=== PATIENT | female | born 1960 | race Caucasian/White ===

== ENCOUNTER 2020-11-30 08:34 | Outpatient (CLI) | payer OTHER, SELFPAY ==
--- NOTE | ~2020-11-30 | MM_ITS ---
EXAMINATION: MM screening arden BI w bety HISTORY: Screening mammogram, family history of breast cancer in her mother. TECHNIQUE: Craniocaudal and mediolateral oblique 3-D tomosynthesis images were obtained and synthetic 2-D images were generated. CAD analysis was submitted and interpreted. COMPARISON: 06/01/2019, 05/17/2018, 09/18/2015 BREAST PARENCHYMAL COMPOSITION: There are scattered areas of fibroglandular density. FINDINGS: There is no evidence of suspicious mass, calcification, or architectural distortion to sugg est malignancy in either breast. There has been no suspicious interval change. IMPRESSION: 1. No mammographic evidence of malignancy. 2. Recommend routine screening mammography in one year. BI-RADS Category 1: Negative Reviewed, dictated and finalized at location A.
--- NOTE | ~2020-11-30 | DEXA_ITS ---
Bone Density Report Name: Gregor Ariza Age: 60 Sex: Female Ethnicity: White Date of : 1960 Indication: osteopenia; height loss; hysterectomy; postmenopausal Referring Provider: Stephanie Wallace Study: Bone densitometry was performed. Exam Date: November 30, 2020 Accession number: [id number] Bone Density: Region BMD T-score Z-score Classification AP Spine (L1-L4) 0.961 -0.8 0.6 Normal Femoral Neck (Left) 0.672 -1.6 -0.3 Osteopenia Total Hip (Left) 0.777 -1.4 -0.4 Osteopenia Total Hip Bilateral Avg 0.820 -1.0 -0.1 Osteopenia Femoral Neck (Right) 0.753 -0.9 0.4 Normal Total Hip (Right) 0.862 -0.7 0.3 Normal World Health Organization criteria for BMD impression classify patients as: Normal (T-score at or above -1.0), Osteopenia (T-score between -1.0 and -2.5), or Osteoporosis (T-score at or below -2.5). 10-year Fracture Risk(1): Major Osteoporotic Fracture 7.4% Hip Fracture 1.0% Reported Risk Factors: [place] (), Neck BMD=0.672, BMI=38.1, smoking (1) FRAX(R) Version 3.08. Fracture probability calculated for an untreated patient. Fracture probability may be lower if the patient has received treatment. Previous Exams: Region Exam Age BMD T-score BMD Change BMD Change Date g/cm2 vs Baseline vs Previous AP Spine(L1-L4) 11/30/2020 60 0.961 -0.8 -0.031(-3.1%)# 0.009(0.9%) 05/17/2018 57 0.952 -0.9 -0.040(-4.0%)# -0.054(-5.4%)* 08/27/2014 53 1.007 -0.4 0.014(1.4%)# 0.014(1.4%)# 08/18/2012 51 0.992 -0.5 Total Hip(Left) 11/30/2020 60 0.777 -1.4 -0.163(-17.4%) -0.032(-3.9%)* 05/17/2018 57 0.808 -1.1 -0.131(-14.0%) -0.052(-6.0%)* 08/27/2014 53 0.860 -0.7 -0.079(-8.5%)# -0.079(-8.5%)# 08/18/2012 51 0.940 0.0 Total Hip(Right) 11/30/2020 60 0.862 -0.7 -0.036(-4.0%)# 0.001(0.1%) 05/17/2018 57 0.861 -0.7 -0.037(-4.1%)# -0.064(-6.9%)* 08/27/2014 53 0.925 -0.1 0.027(3.0%)# 0.027(3.0%)# 08/18/2012 51 0.897 -0.4 *Denotes significance at 95% confidence level, LSC for AP Spine = 0.022 g/cm2, LSC for Total Hip = 0.027 g/cm2 Clinical Information Provided by Patient: Smokes Has used the following medications: Vitamin D, Calcium Has the following medical conditions: Hysterectomy Patient maximum height was 62 Menopause Age: 50 Drinks caffeinated beverages Onset of menses at age 14 Number of children 5 Impression: The patient has low bone mass, based on the Left F
== END 2020-11-30 08:35 | disposition home or self-care (01) ==
LOC: ANHIMG 08:36
PROVIDERS: PCP Family Medicine; Visit Provider Student in an Organized Health Care Education/Training Program
DX: Z12.31 Encounter for screening mammogram for malignant neoplasm of breast (principal); Z78.0 Asymptomatic menopausal state; M85.852 Other specified disorders of bone density and structure, left thigh; M85.851 Other specified disorders of bone density and structure, right thigh
CPT/HCPCS: 77063; 77067; 77080

== ENCOUNTER 2022-01-22 10:42 | Outpatient (CLI) | payer OTHER, SELFPAY ==
--- NOTE | ~2022-01-22 | MM_ITS ---
EXAMINATION: MM screening arden BI w bety HISTORY: Screening TECHNIQUE: Craniocaudal and mediolateral oblique 3-D tomosynthesis images were obtained and synthetic 2-D images were generated. CAD analysis was submitted and interpreted. COMPARISON: Comparison to multiple prior studies sequentially, with oldest reviewed study dated 09/07. BREAST PARENCHYMAL COMPOSITION: There are scattered areas of fibroglandular density. FINDINGS: There is no evidence of suspicious mass, calcification, or architectural distortion to sugg est malignancy in either breast. There has been no suspicious interval change. IMPRESSION: 1. No mammographic evidence of malignancy. 2. Recommend routine screening mammography in one year. BI-RADS Category 1: Negative Reviewed, dictated and finalized at location A.
== END 2022-01-22 10:43 | disposition home or self-care (01) ==
LOC: ANHIMG 10:43
PROVIDERS: PCP Family Medicine; Visit Provider Student in an Organized Health Care Education/Training Program
DX: Z12.31 Encounter for screening mammogram for malignant neoplasm of breast (principal)
CPT/HCPCS: 77063; 77067

== ENCOUNTER 2022-05-11 11:35 | Outpatient (CLI) | payer OTHER, SELFPAY ==
[2022-05-11 18:48] LABS: Basophils Percent Auto 0.5 % (0.2-1.2); Eosinophils Absolute Auto 0.1 K/mm3 (0-0.3); Eosinophils Percent Auto 0.8 % (0-4.4); Hematocrit 45.7 % (37.0-47.0); Hemoglobin 15.3 g/dL (12.0-15.0); Immature Granulocyte Absolute 0.02 K/mm3 (0.00-0.031); Immature Granulocyte Percent A 0.2 % (0-0.5); Lymphocytes Absolute Auto 2.37 K/mm3 (0.9-3.2); Lymphocytes Percent Auto 27.2 % (18.3-44.2); Mean Corpuscular HGB Conc 33.5 g/dl (32-36); Mean Corpuscular Hemoglobin 32.6 pg (26-34); Mean Corpuscular Volume 97.4 fl (80-100); Mean Platelet Volume 12.2 fl (7.4-10.4); Monocytes Absolute Auto 0.9 K/mm3 (0.1-0.6); Neutrophils Absolute Auto 5.3 K/mm3 (1.3-6.7); Neutrophils Percent Auto 61.3 % (45.5-73.1); Platelet Count Result 193 k/mm3 (150-375); Red Blood Count 4.69 M/mm3 (4.2-5.4); Red Cell Distribution Width 13.5 % (11.5-14.5); White Blood Count 8.7 K/mm3 (4.5-10.0)
[2022-05-11 18:49] LABS: Alanine Aminotransferase 31 U/L (6-35); Albumin Level 4.5 g/dL (3.5-5.1); Alkaline Phosphatase 108 U/L (38-126); Anion Gap 10 mmol/L (8-16); Aspartate Amino Transferase 42 U/L (14-36); Bilirubin,Total 0.6 mg/dL (0.2-1.3); Blood Urea Nitrogen 13 mg/dL (7-17); Calcium 9.5 mg/dL (8.4-10.2); Carbon Dioxide 28 mmol/L (22-30); Chloride 104 mmol/L (98-107); Cholesterol 204 mg/dL (0-200); Estimated Glomerular Filt Rate > 60; Glucose 100 mg/dL (65-110); HDL Direct 64 mg/dL; Sodium 142 mmol/L (137-145); Triglycerides 109 mg/dL (<150)
[2022-05-11 19:18] LABS: Vitamin D 25 Hydroxy 43.2 ng/mL
[2022-05-11 19:38] LABS: LDL Cholesterol Direct 99 mg/dL
== END 2022-05-11 11:36 | disposition home or self-care (01) ==
LOC: ANHGOSHLAB 11:37
PROVIDERS: PCP Family Medicine; Visit Provider Nurse Practitioner Family
DX: E03.9 Hypothyroidism, unspecified (principal); E78.5 Hyperlipidemia, unspecified; E55.9 Vitamin D deficiency, unspecified
CPT/HCPCS: 36415; 80053; 80061; 82306; 84443; 85025

== ENCOUNTER 2023-04-09 07:33 | Outpatient (CLI) | payer OTHER, SELFPAY ==
--- NOTE | ~2023-04-09 | MM_ITS ---
EXAMINATION: MM screening arden BI w bety HISTORY: Screening TECHNIQUE: Craniocaudal and mediolateral oblique 3-D tomosynthesis images were obtained and synthetic 2-D images were generated. CAD analysis was submitted and interpreted. COMPARISON: Comparison to multiple prior studies sequentially, with oldest reviewed study dated 09/07. BREAST PARENCHYMAL COMPOSITION: There are scattered areas of fibroglandular density. FINDINGS: There is no evidence of suspicious mass, calcification, or architectural distortion to sugg est malignancy in either breast. There has been no suspicious interval change. IMPRESSION: 1. No mammographic evidence of malignancy. 2. Recommend routine screening mammography in one year. BI-RADS Category 1: Negative Reviewed, dictated and finalized at location A.
== END 2023-04-09 07:34 | disposition home or self-care (01) ==
LOC: ANHIMG 07:35
PROVIDERS: PCP Family Medicine; Visit Provider Family Medicine
DX: Z12.31 Encounter for screening mammogram for malignant neoplasm of breast (principal)
CPT/HCPCS: 77063; 77067

== ENCOUNTER 2023-04-22 01:15 | Day surgery (SDC) | payer OTHER, SELFPAY ==
[2023-04-13 14:00] VITALS: BMI 37.2
--- NOTE | 2023-04-21 12:49 | PM.HPGS ---
History of Present Illness History of Present Illness Consent: Risks, benefits, and alternatives have been discussed and questions answered. Patient agrees to proceed with procedure. Chief complaint: Personal hx of colon polyps Narrative: Gregor Ariza is a 62 year old female Referred for colon cancer screening. She has history of polyps. She had polyps removed in 2010 and 2015. Review of Systems Review of Systems: All systems reviewed & are unremarkable except as noted in HPI and below PMFSH Past Medical History Medical History Arthritis Colovesical fistula Takedown 2018 History of vaginal delivery x1 Hx of colonic polyp (~02/2016) Hyperlipidemia Hypothyroid Low TSH, normal T4. Monitoring. Kidney stone 1986, 2002 Osteopenia Tobacco use Vitamin D deficiency Surgical History Surgical History H/O section x4 H/O dilation and curettage 1993, 1979 H/O partial resection of colon (~2017) 18 Sigmoid Colectomy H/O sinus surgery (~1989) History of appendectomy (~1968) History of lumpectomy of left breast (~09/1997) History of partial hysterectomy (~04/2007) with Bladder repair Hx of knee surgery (~1974) repair of chronic sublettal patella Hx of tubal ligation (~1991) Family History Family History Mother Breast cancer Other Breast cancer Mother Family history of blood dyscrasia, Onset Age: 66 History of thyroid surgery Mitral valve replaced Father H/O coronary artery bypass surgery Social History Social History Smoking packs per day: 0.5 Smoking cigarettes per day: 10.0 Years smoked: 40 Smoking pack-years: 20.00 Smoking status: Current every day smoker Tobacco type: cigarettes Second hand tobacco smoke exposure: No Alcohol intake: current Alcohol use details: occasionnally Substance use: never Substance use type: does not use Lack of Transportation: No Lack of Food: Never True Current Housing: I Have Housing Concerned About Future Housing: No Difficulty Paying Gas/Electric Bills: No Difficulty Paying for Meds: No Currently Unemployed: No Education: Associate Degree Difficulty w/ Childcare or Family Care: No Living arrangements: with family Additional living arrangements comments: 2 Sons Occupation/Education: occupation 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 Spiritual care concerns: No Agree to blood products: Yes Meds Home Medications and Allergies Home Medications Medication Instructions Recorded Confirmed Type multivitamin 1 tablet PO DAILY 05/25/19 04/22/23 History cholecalciferol (vitamin D3) 25 25 mcg PO DAILY 05/09/21 04/22/23 History mcg (1,000 unit) capsule potassium gluconate 550 mg (90 mg) 550 mg PO DAILY 05/09/21 04/22/23 History tablet vitamin E (dl, acetate) 180 mg 180 mg PO DAILY 05/09/21 04/22/23 History (400 unit) capsule Glucosamine Chondroitin 1,125 mg PO DAILY 04/13/23 04/22/23 History calcium carbonate 600 mg-vitamin 1.5 tablet PO DAILY 04/13/23 04/22/23 History D3 10 mcg (400 unit) tablet (Calcium with Vitamin D) Allergies Allergy/AdvReac Type Severity Reaction Status Date / Time erythromycin base Allergy Severe NAUSEA AND Verified 04/22/23 09:28 DIARRHEA morphine Allergy Severe ITCHING Verified 04/22/23 09:28 azithromycin Allergy Intermediate Nausea and Verified 04/22/23 09:28 Vomiting aspirin AdvReac Intermediate bloody nose Verified 04/22/23 09:28 salicylic acid AdvReac Intermediate Nose Bleed Verified 04/22/23 09:28 Exam Resp: Auscultation: clear to auscultation bilaterally Cardio: Rate: regular rate Rhythm: regular rhythm GI: GI Palp: Yes Soft to palpation and No Tenderness to palpation present (GI)
[2023-04-22 09:30] VITALS: BP 120/72; PULSE 86; RESP 16; TEMP 36.3; O2SAT 99
[2023-04-22] MEDS: LACTATED RINGERS 1,000 ML 150 ML IV CONT (09:38)
[2023-04-22 10:48] VITALS: BP 96/56; PULSE 65; RESP 18; O2SAT 95
[2023-04-22 10:58] VITALS: BP 104/66; PULSE 68; RESP 20; O2SAT 95
[2023-04-22 11:08] VITALS: BP 108/69; PULSE 65; RESP 18; O2SAT 97
== END 2023-04-22 11:11 | disposition home or self-care (01) ==
PROVIDERS: PCP Family Medicine; Visit Provider Internal Medicine Gastroenterology
PROC: 0DJD8ZZ Inspection of Lower Intestinal Tract, Via Natural or Artificial Opening Endoscopic (ICD-10-PCS; CPT 45378; principal; 2023-04-22 10:30)
DX: Z12.11 Encounter for screening for malignant neoplasm of colon (principal); K62.1 Rectal polyp; K64.8 Other hemorrhoids; E78.5 Hyperlipidemia, unspecified; E03.9 Hypothyroidism, unspecified; M85.80 Other specified disorders of bone density and structure, unspecified site; E55.9 Vitamin D deficiency, unspecified; F17.210 Nicotine dependence, cigarettes, uncomplicated; Z90.49 Acquired absence of other specified parts of digestive tract; Z98.0 Intestinal bypass and anastomosis status; Z80.3 Family history of malignant neoplasm of breast; Z82.49 Family history of ischemic heart disease and other diseases of the circulatory system
CPT/HCPCS: 45380; 88305; J2704; J7120

== ENCOUNTER 2023-09-13 09:42 | Outpatient (CLI) | payer OTHER, SELFPAY ==
--- NOTE | ~2023-09-13 | XR_ITS ---
EXAMINATION: [id number] INDICATION: Left chest pain TECHNIQUE: A frontal view of the chest and 3 views of the left ribs were obtained. COMPARISON: None. FINDINGS: There are healing posterior fractures of the left fourth through seventh ribs. The lungs ar e free of acute opacities. No pleural effusion or pneumothorax. The cardiomediastinal silhouette is n ormal. IMPRESSION: 1. Healing left rib fractures. Reviewed, dictated and finalized at location F.
== END 2023-09-13 09:43 ==
DX: S22.42XG Multiple fractures of ribs, left side, subsequent encounter for fracture with delayed healing (principal); X58.XXXD Exposure to other specified factors, subsequent encounter
CPT/HCPCS: 71101

== ENCOUNTER 2024-05-12 07:32 | Outpatient (CLI) | payer OTHER, SELFPAY ==
--- NOTE | ~2024-05-12 | DEXA_ITS ---
Bone Density Report Name: Gregor CASPER Age: 63 Sex: Female Ethnicity: White Date of : 1960 Indication: postmenopausal; screening for osteoporosis; height loss; hysterectomy; Referring Provider: CLAY YOON Study: Bone densitometry was performed. Exam Date: May 12, 2024 Accession number: [id number] Bone Density: Region BMD T-score Z-score Classification AP Spine(L1-L4) 0.909 -1.3 0.4 Osteopenia Femoral Neck (Left) 0.596 -2.3 -0.8 Osteopenia Total Hip (Left) 0.807 -1.1 0.0 Osteopenia Femoral Neck (Right) 0.732 -1.1 0.4 Osteopenia Total Hip (Right) 0.888 -0.4 0.7 Normal Total Hip Mean 0.848 -0.8 0.4 Normal World Health Organization criteria for BMD impression classify patients as: Normal (T-score at or above -1.0), Osteopenia (T-score between -1.0 and -2.5), or Osteoporosis (T-score at or below -2.5). 10-year Fracture Risk(1): Major Osteoporotic Fracture 10% Hip Fracture 1.5% Reported Risk Factors: [place] (), Neck BMD=0.596, BMI=39.9 (1) FRAX(R) Version 3.08. Fracture probability calculated for an untreated patient. Fracture probability may be lower if the patient has received treatment. Clinical Information Provided by Patient: Has the following medical conditions: Hysterectomy Patient maximum height was 62 No regular weight bearing exercise Drinks caffeinated beverages Onset of menses at age 15 Number of children 5 Impression: The patient has low bone mass, based on the Left Femoral Neck T-score. The patient has an estimated ten-year risk of hip fracture of 1.5% and an estimated ten-year risk of major fracture of 10%, based on the WHO FRAX algorithm. Discussion: BONE DENSITY IS LOW AT ONE OR MORE SKELETAL SITES. This patient's lowest T-score is low at one or more skeletal sites. It meets the World Health Organization's (WHO) criteria for ?low bone mass? (T-score between -1.0 and -2.5). The patient's 10-year risk of fracture as calculated by FRAX is less than the threshold where pharmacological therapy is recommended by the National Osteoporosis Foundation (NOF). However, all treatment decisions require clinical judgment and consideration of individual patient factors, including patient preferences, comorbidities, previous drug use, risk factors not captured in the FRAX model (e.g., frailty, falls, vitamin D deficiency, increased bone turnover, interval significant decline in bone density) and possible under or overestimation of fracture risk by FRAX. The patient should follow a healthful lifestyle (good nutrition with adequate calcium and vitamin D, and appropriate weight-bearing exercise). Follow-Up: Consider repeating this study in 2 to 3 years to reassess this patient's status, or sooner if there is some new clinical indication. Reported by: ANTONINA on 05/12/2024 8:33:00 AM. Reviewed, dictated and finalized at location A. [facility]
--- NOTE | ~2024-05-12 | MM_ITS ---
EXAMINATION: MM screening arden BI w bety HISTORY: Screening mammogram, family history of breast cancer in her mother. TECHNIQUE: Craniocaudal and mediolateral oblique 3-D tomosynthesis images were obtained and synthetic 2-D images were generated. CAD analysis was submitted and interpreted. COMPARISON: 04/09/2023, 01/22/2022, 11/30/2020 BREAST PARENCHYMAL COMPOSITION:Not Dense. The breasts are almost entirely fatty FINDINGS: There is a more conspicuous 4 mm mass at the outer right breast. Stable parenchymal appeara nce of the left breast. IMPRESSION: More conspicuous 4 mm outer right breast mass. Spot compression views and ultrasound are recommended for further evaluation. BI-RADS Category 0: Incomplete: Needs additional imaging evaluation. Reviewed, dictated and finalized at [facility]. [employer] AUTOMATION ENGINEER IMPRESSION: More conspicuous 4 mm outer right breast mass. Spot compression views and ultr asound are recommended for further evaluation. BI-RADS Category 0: Incomplete: Needs additional imaging evaluation.
== END 2024-05-12 07:33 | disposition home or self-care (01) ==
LOC: ANHIMG 07:33
PROVIDERS: Visit Provider Nurse Practitioner Family
DX: Z12.31 Encounter for screening mammogram for malignant neoplasm of breast (principal); N63.10 Unspecified lump in the right breast, unspecified quadrant; M85.89 Other specified disorders of bone density and structure, multiple sites; Z78.0 Asymptomatic menopausal state; Z13.820 Encounter for screening for osteoporosis
CPT/HCPCS: 77063; 77067; 77080

== ENCOUNTER 2024-05-17 11:43 | Outpatient (CLI) | payer OTHER, SELFPAY ==
--- NOTE | ~2024-05-17 | MMUS_ITS ---
EXAMINATION: MM diagnostic arden RT w bety, US breast RT limited HISTORY: Follow-up right breast mass TECHNIQUE: Additional 3-D tomosynthesis images of the right breast were performed and synthetic 2-D i mages were generated. CAD analysis was submitted and interpreted. High resolution Limited right breas t ultrasound was performed. COMPARISON: Comparison to multiple prior studies sequentially, with oldest reviewed study dated 04/22. BREAST PARENCHYMAL COMPOSITION: Not dense: There are scattered areas of fibroglandular density. FINDINGS: MAMMOGRAPHIC FINDINGS: There is a small mass in the mid outer aspect of the right breast, anterior-middle depth. There are n o suspicious calcifications or architectural distortion. ULTRASOUND: Limited right breast ultrasound: At 9:00, 4 cm from the nipple there is a 3 mm cyst corresponding to the mammographic finding. No suspicious masses to suggest malignancy. IMPRESSION: 1. No evidence for malignancy in the right breast. Benign finding. 2. Routine yearly screening mammogram and regular clinical breast examination are recommended. BI-RADS Category 2: Benign finding(s). Reviewed, dictated and finalized at location B. [employer] IMPRESSION: 1. No evidence for malignancy in the right breast. Benign finding. 2. Routine yearly screening mammogram and regular clinical breast examination a re recommended. BI-RADS Category 2: Benign finding(s).
== END 2024-05-17 11:44 | disposition home or self-care (01) ==
LOC: ANHIMG 11:44
PROVIDERS: Visit Provider Obstetrics & Gynecology
DX: R92.8 Other abnormal and inconclusive findings on diagnostic imaging of breast (principal)
CPT/HCPCS: 76642; 77061; 77065; G0279

== ENCOUNTER 2024-09-11 06:56 | Outpatient (CLI) | payer OTHER, SELFPAY ==
--- NOTE | ~2024-09-11 | CT_ITS ---
EXAMINATION: CT abdomen pelvis wo con DATE: 09/11/2024 07:23 INDICATION: Personal history of kidney stones. TECHNIQUE: Computed tomography (CT) of the abdomen and pelvis was performed without intravenous contr ast. Automated exposure control and iterative reconstruction technique were employed. The dose-length product was 469.02 mGy-cm. COMPARISON: CT abdomen and pelvis 06/08/2017 FINDINGS: The visualized portions of the lung bases demonstrate mild atelectasis. No pleural effusion . The heart size is normal. No pericardial effusion. There are cysts in the liver measuring up to 2.9 cm. In right hepatic lobe, there is a 4.4 x 2.1 cm mass with peripheral curvilinear calcifications, stable from 06/08/2017, likely benign. The gallbladder, spleen, and pancreas are normal. There are ma sses in the adrenal glands measuring up to 15 mm on the right that are chronic and measure low attenu ation, consistent with adenomas. The kidneys are normal. There is a 5 mm stone in distal left ureter with mild left hydroureter. There are is an anastomosis in the rectosigmoid. There are multiple supra umbilical ventral hernias, one of which contains nonobstructed transverse colon. A portion of the alexis er extends into a supraumbilical ventral hernia. There are no dilated loops of bowel. The appendix is not visualized. There is an umbilical hernia containing fat. There are no pathologically enlarged ly mph nodes. There is no free intraperitoneal fluid. There is severe thoracic and lumbar spondylosis. T here are chronic compression fractures of L2 and L4. IMPRESSION: 1. 5 mm stone in distal left ureter with mild left hydroureter. 2. Ventral hernias, one of which contains nonobstructed transverse colon. Reviewed, dictated and finalized at location A.
--- NOTE | ~2024-09-11 | XR_ITS ---
EXAMINATION: XR abdomen/kub 1V DATE: 09/11/2024 07:19 INDICATION: Kidney stones. TECHNIQUE: A supine view of the abdomen on 2 radiographs was obtained. COMPARISON: CT abdomen and pelvis 09/11/2024 FINDINGS: There is a 5 mm stone in distal left ureter. There are phleboliths in the pelvis. There are no dilated loops of bowel. IMPRESSION: 1. 5 mm stone in distal left ureter. Reviewed, dictated and finalized at location A.
--- OUTSIDE RECORDS SUMMARY | 2024-09-11 07:02 | XMS_ITS ---
Author Organization [facility] Address [address] [place] [address] Care Team Providers Care Pipe Fitter Supervisor Maintenance Name Role Phone Britney Hernandez Primary Care Provider REASON FOR VISIT PRTL: Shingles shot notes Encounters Encounter Location Date Provider Diagnosis [address] [address] 04/10/2024 Britney Hernandez PLAN OF TREATMENT Next Appt Details Provider Name:Britney Hernandez , 03/19/2025 08:30:00 AM, [address] [place], [address], Progress Notes * Gregor CASPERDOB: (63 yo F)Acc No.[id number]:04/10/2024 Patient: Gregor CASPER :1960 Age:63 Y Sex:Female Address:[address] [place] [address] [place] [address] Subjective: * Chief Complaints: * PRTL: Shingles shot notes * Medical History: * Surgical History: * Hospitalization/Major Diagno stic Procedure: * Medications: Objective: Assessment: Plan: * Treatment: * Procedure Codes: * true * Date:
--- OUTSIDE RECORDS SUMMARY | 2024-09-11 07:02 | XMS_ITS ---
Author Organization [facility] [employer] Address [address] [place] [address] Care Team Providers Care Director Of Clinical Services Name Role Phone Britney Hernandez Primary Care Provider REASON FOR VISIT 2nd Shingrix vaccine MEDICATIONS Medication SIG (Take, Route, Frequency, Duration) Notes Start Date End Date Status Diclofenac Soln& Men-Meth Wilmer PRN Not-Taking Glucosamine unsure of dosage Active Aleve PRN for pain Active Multivitamin One PO QD Active Potassium unsure of dosage Active Vitamin E unsure of dosage Active Vitamin D unsure of dosage Active Calcium unsure of dosage Active Encounters Encounter Location Date Provider Diagnosis [address] [address] 06/08/2024 Britney Hernandez PLAN OF TREATMENT Next Appt Details Provider Name:Britney Hernandez , 03/19/2025 08:30:00 AM, [address] [place], [address], Progress Notes * Gregor CASPERDOB: (64 yo F)Acc No.[id number]:06/08/2024 Patient: Gregor CASPER Provider: Britney Hernandez APRN :1960 Age:63 Y Sex:Female Date:06/08/2024 Address:[address] [place] [address] [place] Subjective: * Chief Complaints: * 1. 2nd Shingrix vaccine. * Medical History: * Medications: Taking Aleve , Taking Glucosamine , Taking Vitamin D , Taking Vitamin E , Taking Calcium , Taking Potassium , Taking Multivitamin One PO QD , Not-Taking Diclofenac Soln& Men-Meth Wilmer Objective: Assessment: Plan: * Treatment: * Billing Information: * Visit Code: * Procedure Codes: * The named appointment provid er may or may not be the originator of this progress note, and it is not deemed complete until electronically signed by the appointment provider. Sign off status: Pending * Provider: Britney Hernandez APRN Date: 06/08/2024
--- OUTSIDE RECORDS SUMMARY | 2024-09-11 07:02 | XMS_ITS | Data Portability ---
Author Organization [place] [facility], panchoAgustin Luevano Address [address] [place] [address] Care Team Providers Care Occupational Health Nurse Supervisor Name Role Phone BENITO LAZAR Orthopedic Surgeon BRITNEY HERNANDEZ Primary Care Provider Assessment No assessment recorded. Plan of Treatment Reminders Order Date Submit Date Provider Last Modified By Organization Details Last Modified Time Details Appointments InPerson; PE Routine- 60 2024 08:30A Moris Hernandez 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 Not available Not available Not available Lab urinalysi s, complete 2024 025 [facility], [address] [place] [address], [address], 07/24/2024 09:09:32 culture, urine 2024 025 [facility], 2022 Farida Giron, [address], [address], 07/24/2024 09:09:33 urinalysi s, dipstick 2024 025 Not available 07/18/2024 14:31:57 urinalysi s complete, reflex culture 2024 025 [facility] [address] [place], [address], 07/06/2024 04:11:40 Referral None recorded. Procedures None recorded. Surgeries None recorded. Imaging None recorded. Medication Orders None recorded. Patient TargetsNo targets recorded. Patient Instructions Encounter Date Encounter Id Patient Instructions Last Modified By Organization Details Last Modified Time 07/04/2024 [id number] blood in the urine: care instructions Not available 07/04/2024 15:09:11 07/18/2024 [id number] frequent urination: care instructions Not available 07/18/2024 13:09:10 Reason for Referral None Reported. Results Created Date Observation Date Name Description Value Unit Range Abnormal Flag Note LastModifiedBy Organization Detail LastModifiedTime 07/04/1907/05/2024 UA/M W/RFL X CULTU RE, ROUTI NE specific gravity 1.009 1.005- 1.030 normal Not Available [facility] ([facility]) [address] [place], [address], 07/06/2024 04:11:40 07/04/19 25 07/05/2024 UA/M W/RFL X CULTU RE, ROUTI NE pH 7.0 5.0-7. 5 normal Not Available [facility] ([facility]) [address] [place], [address], 07/06/2024 04:11:40 07/04/19 25 07/05/2024 UA/M W/RFL X CULTU RE, ROUTI NE urine-color Yellow yellow Not Available [facility] ([facility]) [address] [place], [address], 07/06/2024 04:11:40 07/04/1907/05/2024 UA/M W/RFL X CULTU RE, ROUTI NE appearance Clear clear Not Available [facility] ([facility]) [address] [place], [address], 07/06/2024 04:11:40 07/04/19 25 07/05/2024 UA/M W/RFL X CULTU RE, ROUTI NE WBC esterase Trace negati ve abnormal Not Available [facility] ([facility]) [address] [place], [address], 07/06/2024 04:11:40 07/04/19 25 07/05/2024 UA/M W/RFL X CULTU RE, ROUTI NE protein Negati ve negati ve/tra ce Not Available [facility] ([facility]) [address] [place], [address], 07/06/2024 04:11:40 07/04/19 25 07/05/2024 UA/M W/RFL X CULTU RE, ROUTI NE glucose Negati ve negati ve Not Available [facility] ([facility]) [address] [place], [address], 07/06/2024 04:11:40 07/04/19 25 07/05/2024 UA/M W/RFL X CULTU RE, ROUTI NE ketones Negati ve negati ve Not Available [facility] ([facility]) [address] [place], [address], 07/06/2024 04:11:40 07/04/19 25 07/05/2024 UA/M W/RFL X CULTU RE, ROUTI NE occult blood 3+ negati ve abnormal Not Available [facility] ([facility]) [address] [place], [address], 07/06/2024 04:11:40 07/04/19 25 07/05/2024 UA/M W/RFL X CULTU RE, ROUTI NE bilirubin Negati ve negati ve Not Available [facility] ([facility]) [address] [place], [address], 07/06/2024 04:11:40 07/04/19 25 07/05/2024 UA/M W/RFL X CULTU RE, ROUTI NE urobilinogen ,semi-qn 0.2 mg/dL 0.2-1. 0 normal Not Available [facility] ([facility]) [address] [place], [address], 07/06/2024 04:11:40 07/04/19 25 07/05/2024 UA/M W/RFL X CULTU RE, ROUTI NE nitrite, urine Negati ve negati ve Not Available [facility] ([facility]) [address] [facility], [place], [address], 07/06/2024 04:11:40 07/04/19 25 07/05/2024 UA/M W/RFL X CULTU RE, ROUTI NE microscopic examination See below: Micro scopi c was indic ated and was perfo rmed. Not Available [facility] ([facility]) [address] [place], [address], 07/06/2024 04:11:40 07/04/19 25 07/05/2024 UA/M W/RFL X CULTU RE, ROUTI NE WBC 6-10 /hpf 0 - 5 abnormal Not Available [facility] ([facility]) [address] [facility], [place], [address], 07/06/2024 04:11:40 07/04/19 25 07/05/2024 UA/M W/RFL X CULTU RE, ROUTI NE RBC 3-10 /hpf 0 - 2 abnormal Not Available [facility] ([facility]) [address] [facility], [place], [address], 07/06/2024 04:11:40 07/04/19 25 07/05/2024 UA/M W/RFL X CULTU RE, ROUTI NE epithelial cells (non renal) 0-10 /hpf 0 - 10 Not Available [facility] ([facility]) [address] [place], [address], 07/06/2024 04:11:40 07/04/19 25 07/05/2024 UA/M W/RFL X CULTU RE, ROUTI NE epithelial cells (renal) 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 Not Available [facility] ([facility]) [address] [place], [address], 07/06/2024 04:11:40 07/04/19 25 07/05/2024 UA/M W/RFL X CULTU RE, ROUTI NE casts None seen /lpf none seen Not Available [facility] ([facility]) [address] [facility], [place], [address], 07/06/2024 04:11:40 07/04/19 25 07/05/2024 UA/M W/RFL X CULTU RE, ROUTI NE cast type 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 Not Available [facility] ([facility]) [address] [facility], [place], [address], 07/06/2024 04:11:40 07/04/19 25 07/05/2024 UA/M W/RFL X CULTU RE, ROUTI NE crystals 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 Not Available [facility] ([facility]) [address] [facility], [place], [address], 07/06/2024 04:11:40 07/04/19 25 07/05/2024 UA/M W/RFL X CULTU RE, ROUTI NE crystal type 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 Not Available [facility]) [address] [facility], [place], [address], 07/06/2024 04:11:40 07/04/19 25 07/05/2024 UA/M W/RFL X CULTU RE, ROUTI NE mucus threads 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 Not Available [facility] ([facility]) [address] [facility], [place], [address], 07/06/2024 04:11:40 07/04/19 25 07/05/2024 UA/M W/RFL X CULTU RE, ROUTI NE bacteria None seen none seen/f ew Not Available [facility] ([facility]) [address] [facility], [place], [address], 07/06/2024 04:11:40 07/04/19 25 07/05/2024 UA/M W/RFL X CULTU RE, ROUTI NE yeast 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 Not Available [facility] ([facility]) [address] [facility], [place], [address], 07/06/2024 04:11:40 07/04/19 25 07/05/2024 UA/M W/RFL X CULTU RE, ROUTI NE trichomonas 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 Not Available [facility] ([facility]) [address] [facility], [place], [address], 07/06/2024 04:11:40 07/04/19 25 07/05/2024 UA/M W/RFL X CULTU RE, ROUTI NE comment 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 Not Available [facility] ([facility]) [address] [facility], [place], [address], 07/06/2024 04:11:40 07/04/19 25 07/05/2024 UA/M W/RFL X CULTU RE, ROUTI NE microscopic examination 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 Not Available [facility]) [address] [facility], [place], [address], 07/06/2024 04:11:40 07/04/19 25 07/05/2024 UA/M W/RFL X CULTU RE, ROUTI NE urinalysis reflex Commen t This speci men has refle xed to a Urine Cultu re. Not Available [facility] ([facility]) [address] [facility], [place], [address], 07/06/2024 04:11:40 07/04/19 25 07/06/2024 UA/M W/RFL X CULTU RE, ROUTI NE urine culture, routine Final report Not Available [facility] ([facility]) [address] [place], [address], 07/06/2024 04:11:40 07/04/19 25 07/06/2024 UA/M W/RFL X CULTU RE, ROUTI NE result 1 COMMEN T Mixed uroge nital zander 10,00 0-25, 000 colon y formi ng units per mL Not Available [facility] ([facility]) [address] [place], [address], 07/06/2024 04:11:40 07/04/1907/10/[address] URINE CULTU RE urine culture result COMMEN T Mixed uroge nital zander Not Available [facility] ([facility]) [address] [facility], [place], [address], 07/10/2024 09:08:52 07/04/1907/06/2024 WRITT EN AUTHO RIZAT ION written authorizatio n Commen t [place] en Autho rizat ion Recei marian. Autho rizat ion recei marian from Melva Gonzalez abebe for Link Reque st 07-06 Logge d by Nazario rivera Not Available [facility] ([facility]) [address] [place], [address], 07/10/2024 09:08:52 07/18/1907/19/2024 URINA LYSIS , COMPL ETE specific gravity 1.009 1.005- 1.030 normal Not Available [facility] ([facility]) [address] [place], [address], 07/24/2024 09:09:32 07/18/19 25 07/19/2024 URINA LYSIS , COMPL ETE pH 6.5 5.0-7. 5 normal Not Available [facility] ([facility]) [address] [place], [address], 07/24/2024 09:09:32 07/18/1907/19/2024 URINA LYSIS , COMPL ETE urine-color Yellow yellow Not Available [facility] ([facility]) [address] [place], [address], 07/24/2024 09:09:32 07/18/19 25 07/19/2024 URINA LYSIS , COMPL ETE appearance Clear clear Not Available [facility] ([facility]) [address] [facility], [place], [address], 07/24/2024 09:09:32 07/18/19 25 07/19/2024 URINA LYSIS , COMPL ETE WBC esterase Negati ve negati ve Not Available [facility] ([facility]) [address] [facility], [place], [address], 07/24/2024 09:09:32 07/18/19 25 07/19/2024 URINA LYSIS , COMPL ETE protein Negati ve negati ve/tra ce Not Available [facility] ([facility]) [address] [facility], [place], [address], 07/24/2024 09:09:32 07/18/19 25 07/19/2024 URINA LYSIS , COMPL ETE glucose Negati ve negati ve Not Available [facility] ([facility]) [address] [facility], [place], [address], 07/24/2024 09:09:32 07/18/1907/19/2024 URINA LYSIS , COMPL ETE ketones Trace negati ve abnormal Not Available [facility] ([facility]) [address] [facility], [place], [address], 07/24/2024 09:09:32 07/18/19 25 07/19/2024 URINA LYSIS , COMPL ETE occult blood Negati ve negati ve Not Available [facility] ([facility]) [address] [place], [address], 07/24/2024 09:09:32 07/18/1907/19/2024 URINA LYSIS , COMPL ETE bilirubin Negati ve negati ve Not Available [facility] ([facility]) [address] [place], [address], 07/24/2024 09:09:32 07/18/19 25 07/19/2024 URINA LYSIS , COMPL ETE urobilinogen ,semi-qn 0.2 mg/dL 0.2-1. 0 normal Not Available [facility] ([facility]) [address] [facility], [place], [address], 07/24/2024 09:09:32 07/18/19 25 07/19/2024 URINA LYSIS , COMPL ETE nitrite, urine Negati ve negati ve Not Available [facility] ([facility]) [address] [facility], [place], [address], 07/24/2024 09:09:32 07/18/19 25 07/19/2024 URINA LYSIS , COMPL ETE microscopic examination Commen t Micro scopi c follo ws if indic ated. Not Available [facility] ([facility]) [address] [facility], [place], [address], 07/24/2024 09:09:32 07/18/19 25 07/19/2024 URINA LYSIS , COMPL ETE microscopic examination See below: Micro scopi c was indic ated and was perfo rmed. Not Available [facility] ([facility]) [address] [facility], [place], [address], 07/24/2024 09:09:32 07/18/19 25 07/19/2024 URINA LYSIS , COMPL ETE WBC None seen /hpf 0 - 5 Not Available [facility] ([facility]) [address] [facility], [place], [address], 07/24/2024 09:09:32 07/18/19 25 07/19/2024 URINA LYSIS , COMPL ETE RBC None seen /hpf 0 - 2 Not Available [facility] ([facility]) [address] [facility], [place], [address], 07/24/2024 09:09:32 07/18/19 25 07/19/2024 URINA LYSIS , COMPL ETE epithelial cells (non renal) None seen /hpf 0 - 10 Not Available [facility] ([facility]) [address], [place], [address], 07/24/2024 09:09:32 07/18/19 25 07/19/2024 URINA LYSIS , COMPL ETE epithelial cells (renal) 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 Not Available [facility] ([facility]) [address], [place], [address], 07/24/2024 09:09:32 07/18/19 25 07/19/2024 URINA LYSIS , COMPL ETE casts None seen /lpf none seen Not Available [facility] ([facility]) [address], [place], [address], 07/24/2024 09:09:32 07/18/19 25 07/19/2024 URINA LYSIS , COMPL ETE cast type 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 Not Available [facility] ([facility]) [address] [facility], [place], [address], 07/24/2024 09:09:32 07/18/19 25 07/19/2024 URINA LYSIS , COMPL ETE crystals 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 Not Available [facility] ([facility]) [address] [facility], [place], [address], 07/24/2024 09:09:32 07/18/19 25 07/19/2024 URINA LYSIS , COMPL ETE crystal type 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 Not Available [facility] ([facility]) [address] [facility], [place], [address], 07/24/2024 09:09:32 07/18/19 25 07/19/2024 URINA LYSIS , COMPL ETE mucus threads 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 Not Available [facility] ([facility]) [address] [facility], [place], [address], 07/24/2024 09:09:32 07/18/19 25 07/19/2024 URINA LYSIS , COMPL ETE bacteria None seen none seen/f ew Not Available [facility] ([facility]) [address] [facility], [place], [address], 07/24/2024 09:09:32 07/18/19 25 07/19/2024 URINA LYSIS , COMPL ETE yeast 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 Not Available [facility] ([facility]) [address] [facility], [place], [address], 07/24/2024 09:09:32 07/18/19 25 07/19/2024 URINA LYSIS , COMPL ETE trichomonas 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 Not Available [facility] ([facility]) [address] [facility], [place], [address], 07/24/2024 09:09:32 07/18/19 25 07/19/2024 URINA LYSIS , COMPL ETE comment 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 Not Available [facility] ([facility]) [address] [facility], [place], [address], 07/24/2024 09:09:32 07/18/19 25 07/24/[address] URINE CULTU RE urine culture result COMMEN T Mixed uroge nital zander Not Available [facility] ([facility]) [address] [facility], [place], [address], 07/24/2024 09:09:33 07/18/19 25 07/18/2024 urina lysis , dipst ick Color Yellow Not Available [employer] [address] [place], [address], 07/18/2024 12:40:29 07/18/19 25 07/18/2024 urina lysis , dipst ick Appearance Clear Not Available [employer] [place] [address] [place], [address], 07/18/2024 12:40:29 07/18/19 25 07/18/2024 urina lysis , dipst ick Leukocytes negati ve Not Available [employer] [address] [place], [address], 07/18/2024 12:40:29 07/18/19 25 07/18/2024 urina lysis , dipst ick Nitrites negati ve Not Available [facility], [place] [address] [facility], [place], [address], 07/18/2024 12:40:29 07/18/19 25 07/18/2024 urina lysis , dipst ick Urobilinogen Normal (0.2) Not Available [facility], [place] [address] [place], [address], 07/18/2024 12:40:29 07/18/19 25 07/18/2024 urina lysis , dipst ick Protein negati ve Not Available [facility], [place] [address] [place], [address], 07/18/2024 12:40:29 07/18/19 25 07/18/2024 urina lysis , dipst ick Blood negati ve Not Available [facility], [place] [address] [place], [address], 07/18/2024 12:40:29 07/18/19 25 07/18/2024 urina lysis , dipst ick Specific Victoria 1.010 Not Available [facility], [facility] [address] [place], [address], 07/18/2024 12:40:29 07/18/19 25 07/18/2024 urina lysis , dipst ick Ketone 5/trac e Not Available [facility], [facility] [address] [place], [address], 07/18/2024 12:40:29 07/18/19 25 07/18/2024 urina lysis , dipst ick Bilirubin negati ve Not Available [facility], [facility] [address] [facility], [place], [address], 07/18/2024 12:40:29 07/18/19 25 07/18/2024 urina lysis , dipst ick Glucose negati ve Not Available [facility], [place] [address] [facility], [place], [address], 07/18/2024 12:40:29 07/18/19 25 07/18/2024 urina lysis , dipst ick pH 5.5 Not Available [facility], [place] [address] [facility], [place], [address], 07/18/2024 12:40:29 07/19/19 25 02/09/2024 XR, arthr ogram , knee No observ ation record ed. Not Available 2024 11:00:54 Result Notes None recorded. Problems Name Problem SNOMED Code Status Onset Date Resolution Date Notes Provider Name and Address Organization Details Recorded Time History of polyp of colon 895143114 Completed 07/04/2024 Descript ion: Personal history of colonic polyps Britney Hernandez 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 [address], [place], [address], [place] [facility] 5 15:12:32 Smoker [id number] Completed 07/04/2024 Descript ion: Smoker unmotiva bakari to quit Removal Reason: quit smoking fall 2023 prior to TKR Britney Hernandez 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 [address], [place], [address], [place] [facility] 5 15:12:51 Obesity [id number] Active Problem Code: E66.9; Problem Code Type: ICD-10; Britney Hernandez 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 [address], [place], [address], [place] [facility] 5 15:12:10 Body mass index 30+ - obesity [id number] Active Descript ion: BMI 39.0-39. 9,adult Britney Voyda 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 [address], [place], [address], [facility] 15:12:24 Bilatera l arthriti s of knees [id number] 99065 Active Descript ion: Arthriti s of both knees Britney Voyda 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 [address], [place], [address], [facility] 15:12:25 Problem Notes None recorded. Procedures Surgical History Date Name Laterality Status Provider Name and Address Organization Details Recorded Time 05/22/20 24 total replacement of left knee joint completed Britney Voyda 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 [address], [place], [address], [facility] 07/04/2024 15:31:49 05/17/20 24 Date of Last Mammogram completed Britney Voyda 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 [address], [place], [address], [facility] 07/04/2024 15:31:42 04/22/20 23 Date of Last Colonoscopy completed Britney Voyda 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 [address], [place], [address], [facility] 07/04/2024 15:30:41 04/22/20 23 Colonoscopy completed Britney Voyda 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 [address], [place], [address], [facility] 07/04/2024 15:22:51 07/22/19 22 Date of Last Pap Smear completed Britney Voyda 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 [address], [place], [address], [facility] 07/04/2024 15:29:14 02/20/20 11 colonoscopy completed Britney Voyda 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 [address], [place], [address], [facility] 07/04/2024 15:18:13 04/21/20 07 Partial Hysterectomy completed Britney Voyda 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 [address], [place], [address], [facility] 07/04/2024 15:24:21 09/20/19 03 nephrolithotomy for removal of calculus completed Britney 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 [address], [place], [address], [facility] 07/04/2024 15:15:47 09/19/18 98 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 [address], [place], [address], [facility] 07/04/2024 15:18:02 06/21/18 94 [facility] of pelvis by laparotomy 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 [address], [place], [address], [facility] 07/04/2024 15:21:59 06/21/18 92 Tubal Ligation 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 [address], [place], [address], [facility] 07/04/2024 15:15:08 06/21/18 90 nasal sinus procedure completed Not Available [facility] 03/26/2024 05:54:07 08/19/18 87 total [facility] left 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 [address], [place], [address], [facility] 07/04/2024 15:16:47 06/21/18 80 Dilation and curettage 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 [address], [place], [address], [facility] 07/04/2024 15:19:17 06/21/18 75 procedure on patella completed Britney 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 [address], [place], [address], [facility] 07/04/2024 15:17:34 06/21/18 69 appendectomy completed Not Available [facility] 03/26/2024 05:54:06 section completed Britney 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 [address], [place], [address], [facility] 07/04/2024 15:46:01 large intestine excision completed Britney 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 [address], [place], [address], [facility] 07/04/2024 15:20:41 Imaging Results Imaging Date Name Status LastModified by [facility] Details LastModified Time 02/09/2024 XR, arthrogram , knee completed Information not available 07/20/2024 11:00:54 Procedure Notes None recorded. Medical Equipment None Reported. Allergies Allergen ID Allergen Name Allergen Category Reaction Reaction Severity Criticality Documentation Date Start Date Code Code System Note Provider Name and Address Organization Details Recorded Time 317597 erythromy jimi medicatio n diarrhea nausea vomiting Not available Not available Not available Not available 02/26/2024 4053 RxNorm Britney Voyda 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 [address], [place], [address], [place] [facility] 5 14:56:50 209243 azithromy jimi medicatio n diarrhea nausea vomiting Not available Not available Not available Not available 02/26/2024 61104 RxNorm Britney Voyda 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 [address], [place], [address], [facility] 5 14:56:14 306803 mold extract environme nt Not available Not available Not available 02/26/2024 91023 8 RxNorm Britney Voyda 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 [address], [place], [address], [facility] 5 14:57:54 630801 codeine medicatio n Not available Not available Not available 02/26/2024 2670 RxNorm SEVER E DROWS INESS Britney Voyda 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 [address], [place], [address], [facility] 5 14:57:40 Medications Name Sig Start Date Stop Date Status Note LastModified by Organization Details LastModified Time Bactrim DS 800 mg-160 mg tablet Take 1 tablet every 12 hours by oral route for 3 days, for urinary tract infectio n. 2024 active Not Available Not Available Not Avai lable Aleve active PRN for pain Medication Not Available Not Available Not Available calcium active unsure of dosage Not Available Not Available Not Available vitamin E active unsure of dosage Not Available Not Available Not Available Vitamin D active unsure of dosage Not Available Not Available Not Available Glucosamin e active unsure of dosage Not Available Not Available Not Available potassium active unsure of dosage Not Available Not Available Not Available Adults Multivitam in 18 mg iron-400 mcg-25 mcg tablet One QD , PO active Not Available Not Available No t Available Vitals Date Recorded Body height Heart rate Body temperature Respiratory rate Systolic blood pressure Diastolic blood pressure Provider Name and Address Organization Details Last Updated DateTime 4 149.86 cm 68 /min 98.1 [degF] 12 /min 132 mm[Hg] 76 mm[Hg] Melva Forbes [facility] 4 17:01:25 Date Recorded Body height Body mass index (BMI) Body weight Body temperature Heart rate Oxygen saturation Oxygen saturation in Arterial blood by Pulse oximetry Respiratory rate Systolic blood pressure Diastolic blood pressure Provider Name and Address Organization Details Last Updated DateTime 5 152.4 cm 40.5 kg/m2 25535.3 4 g 97.6 [degF] 88 /min 99 % 99 % 12 /min 132 mm[Hg] 72 mm[Hg] Melva Forbes [place] [facility] 5 14:45:47 Date Recorded Body height Provider Name an d Address Organization Details Last Updated DateTime 07/13/2024 152.4 cm Britney [address], [place], [address], [place] [facility] 07/13/2024 12:09:23 Date Recorded Body height Body mass index (BMI) Body weight Body temperature Heart rate Oxygen saturation Oxygen saturation in Arterial blood by Pulse oximetry Respiratory rate Systolic blood pressure Diastolic blood pressure Provider Name and Address Organization Details Last Updated DateTime 5 152.4 cm 40 kg/m2 01951.4 4 g 98.3 [degF] 71 /min 99 % 99 % 12 /min 143 mm[Hg] 81 mm[Hg] Melva Forbes [place] [facility] 5 12:38:18 Date Recorded Body height Provider Name an d Address Organization Details Last Updated DateTime 07/24/2024 152.4 cm Britney [address], [place], [address], [facility] 07/24/2024 09:26:11 Social History None recorded. Functional Status None recorded. Mental Status None recorded. Family History Relationship Description Onset Age of this Age Resolved Age Notes LastModified by Organization Details LastModified Time Father Malignant neoplastic disease diagno sed with Other malign ant neopla sm of unspec ified site [email or web address] Not available 03/26/2024 04:58:41 Father Coronary atherosclero sis diagno sed with Barr ry athero sclero sis [email or web address] Not available 03/26/2024 04:58:41 Father Hyperlipidem ia diagno sed with Hyperl ipidem ia [email or web address] Not available 03/26/2024 04:58:42 Father Essential hypertension diagno sed with Hypert ension [email or web address] [id number] Not available 03/26/2024 04:58:42 Notes:*Relative: Sister*Prob yogi: aliveRelative: 'Sister 1'; *Relative: Son*Problem: alive, all 5 have DMRelative: 'Son(s)'; *Relative: Father*Problem: alive *Relative: Sister*Problem: , traumatic head injury, passed at 3 monthsRelative: 'Sister 2'; *Relative: Unspecified Relation*Problem: aliveRelative: 'Children'; *Relative: Brother*Problem: aliveRelative: 'Brother 1'; *Relative: Daughter*Problem: alive, DMRelative: 'Daughter(s)'; *Relative: Mother*Problem: , unknown thyroid disease, polio in childhood, MVR, breast cancer (L mastectomy), passed from brain aneurysm at 66. *Relative: Unspecified Relation*Problem: 4 sons(s) 1 daughters(s) *Relative: Unspecified Relation*Problem: granddaughter dx'd DM at 12. Medical History Condition Response Kidney Stones Y Osteoarthritis Y Abnormal Mammogram Y Gynecological History Statement/Question Response Abnormal Pap N If Post Menopausal, Age at Menopause 46 Date of Last Colonoscopy 04/22/2023 Date of Last Mammogram 05/17/2024 Date of Last Pap Smear 07/22/2021 Current Control Method Hysterectom y Obstetrics History GPAL:G 5 P 0 0 0 5 Type Value Multiple Births 0 Full Term 0 Induced 0 Spontaneous 0 Premature 0 Living 5 Ectopics 0 Total 5 Immunizations Vaccine Type Date Status Note Provider Nam e and Address Organization Details Recorded Time Influenza, split virus, quadrivalent, PF 3 completed Not Available [facility] 02/26/2024 12:02:16 zoster recombinant 4 completed Melva barrow, [place] [facility] 06/08/2024 17:02:09 Pneumococcal conjugate PCV 13 4 completed Not Available [facility] 07/27/2024 22:02:42 Influenza, split virus, trivalent, PF 4 completed Not Available [facility] 07/27/2024 22:02:42 Past Encounters Encounter ID Performer Location Encounter Start Date Encounter Closed Date Diagnosis/Indication Diagnosis SNOMED-CT Code Diagnosis ICD10 Code Diagnosis Note [id number] Melva Forbes [address] [place] [address] 06/08/2024 15:27:35 06/08/2024 17:21:11 Herpes zoster vaccination given [id number] 53818 Z23 [id number] Britney Hernandez NP [address] [place] [address] 07/04/2024 14:34:59 07/04/2024 15:59:33 Blood in urine 83188890 R31.9 Unable to dip urine today as our supply is .Wi ll send urine for UA w/reflex to culture.Pt aware to hydrate well, monitor self for ssx change.Jd l call pt with lab results when rec'd.Pt verbalised understand ing and agreement with above POC. All questions and concerns were addressed. [id number] Britney Hernandez NP [place] [address] [place] [phone] 07/13/2024 11:57:54 07/13/2024 12:15:25 Acute urinary tract infection 889827083 N39.0 Pt will continue to monitor self for ssx or change.Enc ouraged hydration, avoid NSAIDs, limit ETOH.Pt verbalised understand ing and agreement with above POC. All questions and concerns were addressed. [id number] Britney Hernandez NP [employer] [facility] [address] [place] [address] 07/18/2024 12:26:15 07/18/2024 14:59:10 Increased frequency of urination 248537720 R35.0 Urine dip test result neg.Will send urine for UA w/reflex to culture.Pt aware to hydrate well, monitor self for ssx change.Jd l call pt with lab results when rec'd.Cons ider referral to urology given extensive surgical hx and renal stones.Pt verbalised understand ing and agreement with above POC. All questions and concerns were addressed. [id number] Britney Hernandez [facility] [address] [place] [address] 07/24/2024 09:24:50 07/24/2024 17:29:03 Increased frequency of urination 566615897 R35.0 Reviewed results of UA/urine C&S with pt.Pt aware of negative results indicating no antibiotic s are necessary. Encouraged her of adequate water intake, avoiding bladder irritants like caffeine and ETOH, and limit NSAID use.She will call for any change in condition - consider referral to urology given extensive surgical hx and renal stones.Pt verbalised understand ing and agreement with above POC. All questions and concerns were addressed. Health Concerns Section Related Observation LastModified by Organization Detai ls LastModified Time None Recorded Concern Status LastModified by Organization Details LastModified Time None Recorded Advance Directives Directive None Recorded Payers Encounter Date Sequence Insurance Name Policy Number Policy Ramos Covered Member ID Ramos Member ID Guarantor Name 06/08/2024 1 [facility] Spots[employer] (O) [id number] S Jespersen [id number] S Jespersen 07/04/2024 [employer] - NON - PLAN PARTICIPANT - (MOVED-BILLED ) [id number] S Jespersen [id number] S Jespersen 07/13/2024 1 [employer] [facility] [id number] S Jespersen [id number] S Jespersen 07/18/2024 1 [employer] [facility] [id number] S Jespersen [id number] S Jespersen 07/24/2024 1 [employer] [facility] [id number] S Jespersen [id number] S Jespersen Notes Date Note Type Note Provider Name and Address Organization Details Recorded Time 07/04/2024 text/html Pt presents for C/O brown urine with some slight back pain x2 days.hx of kidney stones, last 2003, per patient. SSx: only 1st void of day, rest of the day normal clear-yellow urine. Flank area pain, small of back, bilaterally. 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 Denies having current ssx similar to that. Lyrica and celebrex (100 and 50 mg) twice daily x1 month s/p tkr.Stopped aleve.No longer taking opioid pain relievers routinely only very occasional norco use. Britney Hernandez 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, [place], [address], [place] [facility] 07/04/2024 15:49:24 07/13/2024 text/html Pt presents VIA PHONE for F/U LAB RESULTS. Pt denies any further brown or discolored urine since OV 07/04/24.She did have cloudy urine she thinks 07/06/24 and has had a twinge of discomfort over the kidney area a few times that lingers for a few seconds before resolving.She completed 3 days of Bactrim as rx'd.She denies fever, NVD, fatigue, abd pain, urinary frequency, urgency, dysuria, incontinence, etc. Call placed at: 1055.Call ended at: 1100.This encounter was undertaken via [telephone]. I introduced myself as KEYON Rodas, and greeted the patient by name and then verified their location. We reviewed the appropriateness of virtual care for this visit and the limitations of telemedicine. All issues below were discussed and addressed but no physical exam was performed except as documented. If it was felt the patient should be evaluated [id number], they were directed to the clinic for care either now or at a subsequent visit as indicated below. Verbal consent for telemedicine visit obtained from the patient. 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 Denies having current ssx similar to that. Britney Hernandez 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, [place], [address], [place] [facility] 07/18/2024 14:38:53 07/24/2024 text/html Pt presents VIA PHONE for F/U LAB RESULTS. Pt reports she had a bad day on Wednesday as she had a lot of flank pain after driving in a car for too long. She thinks car vibrations aggravated whatever is going on. Wednesday (yesterday) she reports NO symptoms at all. Same this morning. She continues to drink cranberry juice which she feels helps UTIs. Call placed at:08. Call ended at: 826 This encounter was undertaken via [telephone]. I introduced myself as KEYON Rodas, and greeted the patient by name and then verified their location. We reviewed the appropriateness of virtual care for this visit and the limitations of telemedicine. All issues below were discussed and addressed but no physical exam was performed except as documented. If it was felt the patient should be evaluated [id number], they were directed to the clinic for care either now or at a subsequent visit as indicated below. Verbal consent for telemedicine visit obtained from the patient. Britney Hernandez 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, [place], [address], [place] [facility] 07/24/2024 17:28:19 OBGyn Episode No OBEpisode recorded.
--- OUTSIDE RECORDS SUMMARY | 2024-09-11 07:02 | XMS_ITS | Referral Summary ---
Author Organization [facility] Address [address] [place] [address] Phone Care Team Providers Care Corporate Controller Name Role Phone Minerva Baldwin MD Primary Care Provider Allergies Active Allergy Reactions Criticality Noted Date Comments Erythromycin Stomach upset Low 06/29/2017 Morphine Itching Low 08/03/2023 Medications ibuprofen 200 mg tab/cap 3 (three) times a day Active meloxicam (MOBIC) 15 mg tablet 07/26/2023 Active Active Problems Problem Noted Date Diagnosed Date Obesity with body mass index 30 or greater 08/17 Surgical follow-up care 08/02/2017 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 Immunizations Immunization Administration Dates Next Due Influenza, Unspecified 04/07/2023 Social History Tobacco Use Types Packs/Day Years Used Date Smoking Tobacco: Every Day Cigarettes Smokeless Tobacco: Never Tobacco Cessation:Ready to Q uit: Not Asked; Counseling Given: Not Answered Personal Safety Answer Date Recorded Getting School Help Needed Not on file 06/09 Comments Unknown Sex and Gender Information Value Date Recorded Sex Assigned at Not on file Legal Sex Female 9:12 AM HARMONIC ANALYST Gender Identity Female 06/09/2023 2:24 PM HARMONIC ANALYST Sexual Orientation Straight 06/09/2023 2: 24 PM HARMONIC ANALYST Last Filed Vital Signs Vital Sign Reading Time Taken Comments Blood Pressure 135/89 08/17/2017 10:05 AM HARMONIC ANALYST Pulse 98 08/17/2017 10:05 AM HARMONIC ANALYST Temperature - - Respiratory Rate - - Oxygen Saturation 99% 07/30/2017 1:28 PM HARMONIC ANALYST Inhaled Oxygen Concentration - - Weight 86.2 kg (190 lb) 08/09/2023 8:59 AM HARMONIC ANALYST Height 149.5 cm (4' 10.85 ) 08/09/2023 8:59 AM C Body Mass Index 38.57 08/09/2023 8:59 AM HARMONIC ANALYST Plan of Treatment Not on file Insurance [facility] Care Teams Corporate Controller Relationship Specialty Start Date End Date Minerva Baldwin MD [address] [place] [address] [address] PCP - General Family Practice 06/09/23
--- OUTSIDE RECORDS SUMMARY | 2024-09-11 07:02 | XMS_ITS ---
Author Organization [facility] Address [address] [place] [address] Care Team Providers Care Immigration Guard Name Role Phone Mary Britney Primary Care Provider [phone] ALLERGIES Allergen (clinical drug ingredient) Drug/Non Drug Allergy documented on EMR Reaction Allergy Type Onset Date Status animal fur/dander (uncoded) Unknown Allergy Active Azithromycin stomach upset Drug Allergy Active erythromycin Erythromycin stomach upset Drug Allergy Active codeine Codeine Unknown Drug Allergy Active Mold Unknown Allergy Active Pollen Pollen Unknown Allergy Active REASON FOR VISIT Pnuemonia vacc, insomnia, rib pain MEDICATIONS Medication SIG (Take, Route, Frequency, Duration) Notes Start Date End Date Status Calcium unsure of dosage Active Potassium unsure of dosage Active Glucosamine unsure of dosage Active Vitamin D unsure of dosage Active Vitamin E unsure of dosage Active Multivitamin One PO QD Active Aleve PRN for pain Active Diclofenac Soln& Men-Meth Wilmer PRN Not-Taking IMMUNIZATIONS Vaccine Route Administration Date Status Comme nts Prevnar 13 IM Intramuscular 04/06/2024 Administered Shingrix IM Intramuscular 04/06/2024 Administered VITAL SIGNS Temperature 97.6 degrees Fahrenheit 04/06/20 24 Heart Rate 58 /min 04/06/2024 Oximetry 98 % 04/06/2024 Blood pressure systolic 120 mm Hg 04/06/20 24 Blood pressure diastolic 68 mm Hg 024 Respiratory Rate 12 /min 04/06/2024 Weight 205.2 lbs 04/06/2024 Height 59 in 04/06/2024 BMI 41.44 04/06/2024 Weight-kg 93.08 kg 04/06/2024 152/71 initially per SERVICE ESTABLISHMENT ATTENDANT. Encounters Encounter Location Date Provider Diagnosis [facility] [address] [place] [address] 04/06/2024 Britney Emersonmarinaneris Encounter for immunization Z23 and Generalized joint pain M25.50 ASSESSMENTS Encounter Date Diagnosis Assessment Notes Treatment Notes Treatment Clinical Notes Section Notes 04/06/2024 Encounter for immunization (ICD-10 - Z23) Pt has already rec'd flu shot for the season. Prevnar 13 and Shingrix discussed w/pt. Pt agreeable to proceed. Injections given per Lu MORFIN, tolerated w/o issue. 04/06/2024 Generalized joint pain (ICD-10 - M25.50) Pt c/o generalized joint pain disrupting sleep. She will occasionally take Tylenol or Aleve for pain when severity is high, however as she's in constant pain/discomfort she does not want to cause further health issues with chronic use of these. Discussed OTC options to help with sleep - melatonin, unisom, magnesium, etc. Consider OTC analgesic PRN before bed as well. Pt will let us know if she's interested in meloxicam or celebrex trial. Pt voiced understanding and agreement with POC as discussed. All questions and concerns were addressed to pt satisfaction. PLAN OF TREATMENT Next Appt Details Provider Name:Britneyradha Buenoneris , 03/19/2025 08:30:00 AM, [address] [place], [address], Progress Notes * Gregor ARIZADOB: (63 yo F)Acc No.[id number]:04/06/2024 Patient: Gregor ARIZA Provider: Britney Hernandez APRN :1960 Age:63 Y Sex:Female Date:04/06/2024 [facility] Subjective: * Chief Complaints: * Pnuemonia vacc, insomnia, rib pain * HPI: *: Pt presents for C/O needing vaccines. C /O sleeping trouble t ired during day w orried about surgery for knees A leve once and a while before bed w alks w/cane C /O rib pain. j ust sore from more extra movement. n o OTC analgesics as pain is manageable. D enies trauma or reinjury of area. * ROS: General/Constitutional: General REPORTS: TIRED. , Denies:, chills, fatigue, fever, headache, lightheadedness. Eyes Denies: visual changes or disturbances. Cardiovascular DENIES: , chest pain or tightness, irregular heartbeat, palpitations. Respiratory DENIES: , cough, shortness of breath, wheezing. Skin DENIES: , concerning/changing lesions, itching, rash. Musculoskeletal REPORTS: GENERALIZED JOINT PAIN ESPECIALLY TO KNEES. RECENTLY FX'D RIBS ARE ALSO SORE AT TIMES AFTER MORE MOVEMENT.. Neurologic DENIES: , dizziness, headache, weakness. * Medical History: * Surgical History: * Hospitalization/Major Diagno stic Procedure: * Medications: TakingAleve Glucosamine Vitamin D Vitamin E Calcium Potassium Multivitamin One PO QD Taking Aleve Taking Glucosamine Taking Vitamin D Taking Vitamin E Taking Calcium Taking Potassium Taking Multivitamin One PO QD Not-TakingDiclofenac Soln& Men- Meth Wilmer Not-Taking Diclofenac Soln& Men-Meth Wilmer * Allergies: Erythromycin: stomach upsetAzithromycin: stomach upsetCodeine - Criticality [facility][Allergies Verified] Objective: * Vitals: Temp:97.6F, HR:58, Oxygen sat:98%, BP:120/68mm Hg, RR:12/min, Wt:205.2lbs, Wt Ch.4 lbs, Wt Chg %: 1.68%, Ht:59in, BMI:41.44, Wt-k.08 kg 152/71 initially per SERVICE ESTABLISHMENT ATTENDANT. * Examination: General Examination *: GENERAL APPEARANCE: MORBIDLY OBESE,, alert and oriented, no acute distress, pleasant. HEAD: atraumatic, normocephalic. EYES: conjunctiva clear, sclera non-icteric. HEART: S1/S2 normal, regular rate and rhythm, no murmurs, no rubs, no gallops. LUNGS: Clear to auscultation bilaterally. Good air movement throughout, no respiratory distress or difficulty. No difficulty with deep inspiration. No rhonchi, wheezes or crackles. Good air exchange.. Assessment: * Assessment: 1. Generalized joint pain - M25.50 (Primary) 2. Encounter for immunization - Z23 Plan: * Treatment: 2. Encounter for immunization Clinical Notes: Pt has already rec'd flu shot for the season. Prevnar 13 and Shingrix discussed w/pt. Pt agreeable to proceed. Injections given per Lu MORFIN, tolerated w/o issue. * Immunizations: Prevnar 13 : 0.5 mL (Dose No:1) (Route: Intramuscular) given by Melva Forbes on Right Deltoid (Encounter for immunization) Shingrix : .5 mL (Dose No:1) (Route: Intramuscular) given by Melva Forbes on Left Deltoid (Encounter for immunization) * Procedure Codes: Prevnar [id number] HZV VACC RECOMBINANT IM [id number] IMMUNIZATION ADMIN, Modifiers: 25 * Billing Information: * Visit Code: 99157 Level 3 Est Patient Acute Care. * Procedure Codes: Prevnar 13. 19584 HZV VACC RECOMBINANT IM NJX. 99133 IMMUNIZATION ADMIN. Modifiers: 25 * Sign off status: Completed true * Provider: Britney Hernandez APRN Date: 04/06/2024 History and Physical Notes * Examination Category Sub-Category Detail Notes Category Not es General Examination * GENERAL APPEARANCE: MORBID LY OBESE,, alert and oriented, no acute distress, pleasant HEAD: atraumatic, normocep halic EYES: conjunctiva clear, s clera non-icteric HEART: S1/S2 normal, regula r rate and rhythm, no murmurs, no rubs, no gallops LUNGS: Clear to auscultatio n bilaterally. Good air movement throughout, no respiratory distress or difficulty. No difficulty with deep inspiration. No rhonchi, wheezes or crackles. Good air exchange. MUSCULOSKELETAL:
--- OUTSIDE RECORDS SUMMARY | 2024-09-11 07:02 | XMS_ITS | Patient Health Record ---
Author Organization [facility] [employer] [facility] Address [address] [place] [address] Care Team Providers Care Customer Services Supervisor Name Role Phone Britney Hernandez Primary Care Provider ALLERGIES Allergen (clinical drug ingredient) Drug/Non Drug Allergy documented on EMR Reaction Allergy Type Onset Date Status animal fur/dander (uncoded) Unknown Allergy Active Azithromycin stomach upset Drug Allergy Active erythromycin Erythromycin stomach upset Drug Allergy Active codeine Codeine Unknown Drug Allergy Active Mold Unknown Allergy Active Pollen Pollen Unknown Allergy Active RESULTS Component Value Reference Range Notes XR RIBS - 3 VIEWS WITH PA CH EST - LEFT Reviewed date:11/30/2023 02:31:51 PM Interpretation: Performing Lab: Notes/Report: Comp. Metabolic Panel (14) ( CMP)([id number]) Reviewed date:03/21/2024 12:29:44 PM Interpretation:Normal Performing Lab:[facility], [address] [place] [id number], Phone - [phone], [facility] - [facility] Notes/Report: Glucose 83 70-99 mg/dL BUN 17 8-27 mg/dL Creatinine 0.68 0.57-1.00 mg/dL eGFR 98 >59 mL/min/1.73 BUN/Creatinine Ratio 25 12-28 Sodium 142 134-144 mmol/L Potassium 4.7 3.5-5.2 mmol/L Chloride 103 96-106 mmol/L Carbon Dioxide, Total 24 20-29 mmol/L Calcium 9.9 8.7-10.3 mg/dL Protein, Total 6.8 6.0-8.5 g/dL Albumin 4.5 3.9-4.9 g/dL Globulin, Total 2.3 1.5-4.5 g/dL Bilirubin, Total 0.3 0.0-1.2 mg/dL Alkaline Phosphatase 116 44-121 IU/L AST (SGOT) 21 0-40 IU/L ALT (SGPT) 28 0-32 IU/L Hemoglobin A1c (S/O) ([id number] ) Reviewed date:03/21/2024 12:29:44 PM Interpretation:Normal Performing Lab:[email or web address] [id number], Phone - [phone], [facility] Notes/Report: Hemoglobin A1c 5.6 4.8-5.6 % . Prediabetes: 5.7 - 6.4 Diabetes: >6.4 Glycemic control for adults with diabetes: <7.0 CBC With Differential/Platel et ([id number]) Reviewed date:03/21/2024 12:29:45 PM Interpretation:Normal Performing Lab:[email or web address] [id number], Phone - [phone], [facility] Notes/Report: WBC 7.0 3.4-10.8 x10E3/uL RBC 4.56 3.77-5.28 x10E6/uL Hemoglobin 14.2 11.1-15.9 g/dL Hematocrit 44.7 34.0-46.6 % MCV 98 79-97 fL MCH 31.1 26.6-33.0 pg MCHC 31.8 31.5-35.7 g/dL RDW 12.3 11.7-15.4 % Platelets 206 150-450 x10E3/uL Neutrophils 56 Not Estab. % Lymphs 32 Not Estab. % Monocytes 9 Not Estab. % Eos 2 Not Estab. % Basos 1 Not Estab. % Immature Cells Neutrophils (Absolute) 4.0 1.4-7.0 x10E3/uL Lymphs (Absolute) 2.2 0.7-3.1 x10E3/uL Monocytes(Absolute) 0.6 0.1-0.9 x10E3/uL Eos (Absolute) 0.2 0.0-0.4 x10E3/uL Baso (Absolute) 0.0 0.0-0.2 x10E3/uL Immature Granulocytes 0 Not Estab. % Immature Grans (Abs) 0.0 0.0-0.1 x10E3/uL NRBC Hematology Comments: Lipid Panel w/ Chol/HDL Rati o ([id number]) Reviewed date:03/21/2024 12:29:45 PM Interpretation:Abnormal Performing Lab:[facility], [address] [place] [id number], Phone - [phone], Director - [facility] Notes/Report: Cholesterol, Total 200 100-199 mg/dL Triglycerides 96 0-149 mg/dL HDL Cholesterol 73 >39 mg/dL VLDL Cholesterol Deandre 17 5-40 mg/dL LDL Chol Calc ([facility]) 110 0-99 mg/dL LDL Calc Comment: T. Chol/HDL Ratio 2.7 0.0-4.4 ratio T. Chol/HDL Ratio Men Women 1/2 Avg.Risk 3.4 3.3 Avg.Risk 5.0 4.4 2X Avg.Risk 9.6 7.1 3X Avg.Risk 23.4 11.0 TSH reflex to T4 Reviewed date:03/21/2024 12:29:45 PM Interpretation:Abnormal Performing Lab:[facility], [address] [place] [id number], Phone - [phone], [facility] Notes/Report: TSH 7.460 0.450-4.500 uIU/mL Thyroxine (T4) 7.8 4.5-12.0 ug/dL MAMMO - SCREENING BILATERAL 3D DORIAN Reviewed date:09/13/2023 12:41:50 PM Interpretation:Normal Performing Lab: Notes/Report: Normal REASON FOR REFERRAL Reason History of colonic p olyps Screening, colorectal, colonoscopy Diagnosis 1 Personal history of colonic polyps (Z86.010) Diagnosis 2 Colon cancer screeni ng (Z12.11) Referral Organization [facility] Referring Provider First Name Britney Referring Provider Last Name Mary Referring Provider Speciality Family Med iciporsche Referred Provider Seng Roy Referred Provider Specialty Gastroentero logy Clinical Notes Britney Hernandez 09/2023 10:45:43 AM >No longer needed. Pt's colonscopy results rec'd from 04/2023. No need to repeat at this time. Referral Priority Routine Referral Appointment Date 04/22/2023 MEDICATIONS Medication SIG (Take, Route, Frequency, Duration) Notes Start Date End Date Status Diclofenac Soln& Men-Meth Wilmer PRN Not-Taking Glucosamine unsure of dosage Active Aleve PRN for pain Active Multivitamin One PO QD Active Vitamin E unsure of dosage Active Vitamin D unsure of dosage Active Potassium unsure of dosage Active Calcium unsure of dosage Active IMMUNIZATIONS Vaccine Route Administration Date Status Comme nts Afluria Quad 0.5ml Prefilled Syringe age 3 yrs and older IM Intramuscular 04/07/2023 Administered Afluria Trivalent - 0.5ml Prefilled Syringe: Age 3 Years + IM Intramuscular 03/29/2024 Administered Boostrix- Tdap IM Intramuscular 09/13/2023 Administered Prevnar 13 IM Intramuscular 04/06/2024 Administered Shingrix IM Intramuscular 04/06/2024 Administered SOCIAL HISTORY Tobacco Use: Social History Observation Description Date Details (start date - stop date) Former Smoker NA - 02/08/2024 Sex Assigned At : Social History Observation Description Sex Assigned At Unknown Tobacco Use/Smoking Question Answer Notes Are you a former user When did you stop using? 02/08/2024 Alcohol Questionnaire Question Answer Notes Did you have a drink contain ing alcohol in the past year? Yes How often did you have a dri nk containing alcohol in the past year? Monthly or less (1 point) How many drinks did you have on a typical day when you were drinking in the past year? 1 or 2 drinks (0 point) How often did you have 6 or more drinks on one occasion in the past year? Never (0 point) Points 1 Interpretation Negative PROBLEMS Problem Type ICD Code Onset Dates Problem Status W/U Status Risk SNOMED Code Notes Problem Colon cancer screening (Z12.11) Active confirmed 313074348 Problem Personal history of colonic polyps (Z86.010) Active confirmed 830182554 Problem BMI 39.0-39.9,adult (Z68.39) Active confirmed 723543098 Problem Obesity (BMI 35.0-39.9 without comorbidity) (E66.9) Active confirmed Obesity (283356372) Problem Smoker unmotivated to quit (F17.200) Active confirmed 32845035 Problem Arthritis of both knees (M17.0) Active confirmed [id number] VITAL SIGNS Heart Rate 58 /min 04/06/2024 152/71 initiall y per [employer]. Temperature 97.6 degrees Fahrenheit 04/06/2024 152/ 71 initially per [employer]. Respiratory Rate 12 /min 04/06/2024 152/71 init ially per [employer]. Oximetry 98 % 04/06/2024 152/71 initiall y per [employer]. Blood pressure diastolic 68 mm Hg 04/06/2024 152 /71 initially per [employer]. Weight-kg 93.08 kg 04/06/2024 152/71 initiall y per [employer]. Height 59 in 04/06/2024 152/71 initiall y per [employer]. Blood pressure systolic 120 mm Hg 04/06/2024 152/ 71 initially per [employer]. Weight 205.2 lbs 04/06/2024 152/71 initiall y per [employer]. BMI 41.44 04/06/2024 152/71 initiall y per [employer]. Encounters Encounter Location Date Provider Diagnosis [facility] [address] [place] [address] 03/20/2024 Britney Hernandez Encounter for genera l adult medical examination with abnormal findings Z00.01 ; Arthritis of both knees M17.0 ; Smoker within last 12 months Z87.891 ; Abnormal thyroid blood test R79.89 ; BMI 40.0-44.9, adult Z68.41 ; FHx: diabetes mellitus Z83.3 and Screening cholesterol level Z13.220 [facility] [address] [place] [address] 06/08/2024 Britney Hernandez [facility] [address] [place] [address] 04/06/2024 Britney Hernandez Encounter for immunization Z23 and Generalized joint pain M25.50 [facility] [address] [place] [address] 09/13/2023 Britney Hernandez Closed fracture of multiple ribs of left side with delayed healing, subsequent encounter S22.42XG ; Immunization due Z23 and Acquired absence of both cervix and uterus Z90.710 [facility] [address] [place] [address] 03/21/2024 Britney Hernandez Abnormal thyroid blo od test R79.89 ; Hyperlipidemia, unspecified hyperlipidemia type E78.5 and FHx: diabetes mellitus Z83.3 [facility] [address] [place] [address] 04/10/2024 Britney Hernandez [facility] [address] [place] [address] 03/21/2024 Britney Hernandez [facility] [address] [place] [address] 03/20/2024 Britney Hernandez ASSESSMENTS Encounter Date Diagnosis Assessment Notes Treatment Notes Treatment Clinical Notes Section Notes 09/13/2023 Immunization due (ICD-10 - Z23) Pt reports unknown last tdap, agreeable to this today. She is interested in becoming UTD all recommended vaccines before being hospitalized for TKR. Encouraged pt to proceed to local pharmacy for PCV 20, Shingrix, and COVID boosters, if desired, as discussed. 09/13/2023 Closed fracture of multiple ribs of left side with delayed healing, subsequent encounter (ICD-10 - S22.42XG) Suspect malunion given pt's persistent c/o pain to LT rib fx. Will have pt repeat XR imaging as ordered. 03/20/2024 Encounter for general adult medical examination with abnormal findings (ICD-10 - Z00.01) Last Labs: drawn today NONfasting. Pt may provide results to orthopedist if needed. Last Mammo: reportedly WNL completed 04/19/24 at [facility], now scheduled 04/2024. Last Pap: 03/[address] Ankit Gar or [employer] [facility] at [facility], repeat 1 year. Vaccines: reports she got flu vax last year at work. Declines tdap and PNA, states she can't remember when/if she's had these. Colonoscopy: 04/22/2023, repeat 5 years. LDCT: never, declines. Stopped smoking 02/08/24 for surgery. Encouragement provided. Pt reports doing well w/this. Encouraged annual eye exams. 03/20/2024 Arthritis of both knees (ICD-10 - M17.0) She anticipates w/in 3 months, but is not yet scheduled for LT TKR with orthopedist at [facility]. She reports they will not schedule her w/o PCP physical exam and form completed. Form completed and provided to pt. 03/21/2024 Abnormal thyroid blood test (ICD-10 - R79.89) Elevated TSH 02/2024 @ 7.4 and 03/2023 at 6.4. Noted 10 lb weight gain, however pt has quit smoking 02/08/2024 and this may be a contributing factor. Denies hair/skin/nail, energy, or other changes stating she's always tired and has had brittle nails. Discussed possible consideration for very low dose levothyroxine or continue monitoring. Pt opts to recheck labs in 6-12 months or sooner PRN. 03/21/2024 Hyperlipidemia, unspecified hyperlipidemia type (ICD-10 - E78.5) 02/2024 labs indicate very mild TC and LDL elevation. Encouraged weight loss, nutritional intake improvement, exercise as tolerated. ASCVD risk current 10 year is 3.4%, prior 10 year at 7.3%, and optimal at 1.3%. Repeat with annual labs. 04/06/2024 Encounter for immunization (ICD-10 - Z23) [...] and concerns were addressed to pt satisfaction. 09/13/2023 Acquired absence of both cervix and uterus (ICD-10 - Z90.710) 03/20/2024 Smoker within last 12 months (ICD-10 - Z87.891) Former smoker, quit 02/08/24, 40+ pack year hx. Lung health and smoking cessation continuation discussed. She declines LDCT. Pt advised to call for change in decision. 03/21/2024 FHx: diabetes mellitus (ICD-10 - Z83.3) Pt reports past issues with hypoglycemia, never hyper-. All 5 of her children have DM and 1 of her adolescent granddaughters. 02/2024 and 03/2023 labs show a1c WNL. 03/20/2024 Abnormal thyroid blood test (ICD-10 - R79.89) Reports hx elevated TSH result in recent past 03/2023. Noted 10 lb weight gain, however pt has quit smoking 02/08/2024 and this may be a contributing factor. Discussed labs as ordered - pt is NONfasting. Will update with results and POC as necessary. 03/20/2024 BMI 40.0-44.9, adult (ICD-10 - Z68.41) Encouraged improved nutrition, exercise as tolerated given bilateral arthritic knees needing replacement, more water, continue smoking cessation. Pt states she felt her best about 145 lbs, and hopes to try for some weight loss especially after knees are replaced in near future. 03/20/2024 FHx: diabetes mellitus (ICD-10 - Z83.3) Pt reports past issues with hypoglycemia, never hyper-. All 5 of her children have DM and 1 of her adolescent granddaughters. Will check labs and tx as necessary. 03/20/2024 Screening cholesterol level (ICD-10 - Z13.220) 09/13/2023 Other 03/20/2024 Other Reports urinary dribbling with cough/sneeze/s ome activities. She declines pelvic floor PT referral stating she discovered employer benefit of [employer] for pelvic floor and has contacted them. She will call for need of further help. Reports urinary dribbling with cough/sneeze/s ome activities. She declines pelvic floor PT referral stating she discovered employer benefit of [employer] for pelvic floor and has contacted them. She will call for need of further help. PLAN OF TREATMENT Next Appt Details Provider Name:Britney Hernandez , 03/19/2025 08:30:00 AM, [address] [place], [address], Insurance Providers Payer Name Payer Address Payer Phone Subscriber Number Group Number Insured Name Patient Relationship to Insured Coverage Start Date Coverage End Date MARY HERNANDEZ [address] [address] [place] [address] [id number] [phone] Gregor Ariza Self - patient is the insured MEDICAL (GENERAL) HISTORY Medical History History ICD Code Smoker F17.200 Kidney stones N20.0 Arthritis M19.90 Cold sore B00.1 Sinus problem J34.9 Obesity (BMI 35.0-39.9 without comorbidi ty) E66.9 Surgical History Surgery Date(Month/Year) colonoscopy with [facility] 04/22/2023 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 06/2017 colonoscopy, diverticulosis 02/2016 colonoscopy 02/2011 partial hysterectomy & bladder repair kidney stone - manipulation and removal 09/2002 lumpectomy - L breast, benign 09/1997 D&C with Ex Lap - polyp and scar tissue removal 1993 laparoscopic tubal ligation 1991 sinus surgery 1989 section x4 kidney stone - manipulation and removal 08/1986 dilation and curettage - uterine polyp r emoval 1979 knee surgery - correct chronic sublettal patella L 1975 appendectomy 1969 Hospitalization History Reason Date(Month/Year) child , 06/1983 concussion, hospitalized x2 days 1962 or 1963 child , repeat C/S child , repeat C/S 12/1990 child , repeat C/S 04/1989 child , repeat C/S 08/1987 child , C/S 10/1985
--- OUTSIDE RECORDS SUMMARY | 2024-09-11 07:02 | XMS_ITS | Clinical Summary ---
Author Organization [facility] Address [address] [place] [address] Care Team Providers Care Biology Adjunct Instructor Name Role Phone Britney Hernandez INTELLIGENCE GROUP SUPERVISOR-MANAGER SPECIALTY Primary Care Provider + Source Comments [facility],non-owned Affiliates and Associated Physician Practices is amultiple site organization consisting of ambulatory clinics and hospital sitesin [place], [place], [place] and [place]. This disclosure is being madepursuant to the Care Everywhere program and may not contain all information available regarding this patient. Last updated 18.[facility] Allergies Active Allergy Reactions Criticality Noted Date Comments Azithromycin Nausea and/or Vomiting 05/02/2024 Nausea / vomiting / diarrhea Erythromycin Nausea and/or Vomiting 05/02/2024 Nausea and vomiting / diarrhea Morphine Other 05/02/2024 itching Medications * Be aware that medications may not be up to date on this document. Alwaysverify current medications with the patient. Medication Sig Dispensed Refills Start Date End Date Status naproxen sodium (Aleve) 220 MG tablet Take 1 (one) tablet by mouth 2 times daily as needed for Pain Active pregabalin (Lyrica) 50 MG capsuleIndications:N europathic Pain Take 1 (one) capsule by mouth 2 times daily for 30 days Reasons: Neuropathic Pain 60 capsule 4 Active famotidine (Pepcid) 20 MG tabletIndications:Ga stroesophageal Reflux Disease Take 1 (one) tablet by mouth every 12 hours for 30 days Reasons: Gastroesophageal Reflux Disease 60 tablet 4 Active celecoxib (CeleBREX) 100 MG capsuleIndications:M usculoskeletal Pain Take 1 (one) capsule by mouth 2 times daily Reasons: Musculoskeletal Pain 60 capsule 4 Active aspirin EC (Ecotrin) 81 MG tabletIndications:Ve nous Thromboembolism Take 1 (one) tablet by mouth every 12 hours Reasons: Venous Thromboembolism 60 tablet 4 Active HYDROcodone-acetamin ophen (Tonalea) 5-325 MG tabletIndications:Pa in Take 1 (one) tablet by mouth every 4 hours as needed for Pain Reasons: Pain 42 tablet 4 Active Active Problems Problem Noted Date Diagnosed Date Osteoarthritis, unspecified osteoarthritis type, unspecified site 05/22/2024 Encounters Date Type Department Care Team Description 08/21/2024 Telephone [facility] - Orthopedic Surgery [address] [place] [phone] David Garza MD Question 08/17/2024 Telephone [facility] Physician [facility] - Orthopedic Surgery [address] [place] [phone] David Garza MD Follow-up 08/15/2024 Telephone [facility] - Orthopedic Surgery [address] [place] [phone] Joanna Harp RN Follow-up 08/10/2024 Telephone [facility] - Orthopedic Surgery [address] [place] [phone] David Garza MD Follow-up 08/09/2024 [facility] Physician [facility] - Orthopedic Surgery [address] [place] [phone] David Garza MD Follow-up 08/09/2024 [facility] Physician [facility] - Orthopedic Surgery [address] [place] [phone] David Garza MD Follow-up 07/17/2024 Telephone [facility] - Orthopedic Surgery [address] [place] [phone] David Garza MD Follow-up 07/07/2024 Telephone [facility] - Orthopedic Surgery [address] [place] [phone] Joanna Harp RN Follow-up 06/22/2024 Telephone [facility] - Orthopedic Surgery [address] [place] [phone] David Garza MD Question 06/20/2024 11:15 AM HEATING AND VENTILATION ENGINEER - 06/20/2024 11:59 PM HEATING AND VENTILATION ENGINEER Hospital Encounter [facility] - Orthopedics [address] [place] [address], [address] [place] [phone] David Garza MD Discharge Disposition: Home or Self Care 06/20/2024 11:15 AM HEATING AND VENTILATION ENGINEER Office Visit [facility] - Orthopedic Surgery [address] [place] [phone] David Garza MD History of total left knee replacement (Primary Dx); Primary osteoarthritis of right knee 06/20/2024 Travel from Last 3 Months Social History Tobacco Use Types Packs/Day Years Used Date Smoking Tobacco: Former Cigarettes Smokeless Tobacco: Never Comments:3 cigarettes a day Alcohol Use Standard Drinks/Week Comments Yes 0 (1 standard drink = 0.6 oz pur e alcohol) Ocassionaly AUDIT-C Answer Date Recorded Q1: How often do you have a drink containing alcohol? Never 05/22/2024 Q2: How many drinks containi ng alcohol do you have on a typical day when you are drinking? Patient does not drink Q3: How often do you have si x or more drinks on one occasion? Never 05/22/2024 PHQ-2 Answer Date Recorded Patient Health Questionnaire-2 Score 2 06/17/2024 Sex and Gender Information Value Date Recorded Sex Assigned at Female 12/27/2023 4:26 PM CDT Gender Identity Female 12/27/2023 4:26 PM CDT Sexual Orientation Straight 12/27/2023 4: 26 PM CDT Last Filed Vital Signs Vital Sign Reading Time Taken Comments Blood Pressure 126/72 05/23/2024 11:01 AM HEATING AND VENTILATION ENGINEER Pulse 69 05/23/2024 11:01 AM HEATING AND VENTILATION ENGINEER Temperature 36.9 C (98.5 F) 05/23/2024 11:01 AM HEATING AND VENTILATION ENGINEER Respiratory Rate 18 05/23/2024 11:01 AM HEATING AND VENTILATION ENGINEER Oxygen Saturation 94% 05/23/2024 4:59 AM HEATING AND VENTILATION ENGINEER Inhaled Oxygen Concentration - - Weight 95 kg (209 lb 6.4 oz) 05/23/2024 4:59 AM HEATING AND VENTILATION ENGINEER Height 152.4 cm (5') 05/23/2024 4:59 AM HEATING AND VENTILATION ENGINEER Body Mass Index 40.9 05/23/2024 4:59 AM HEATING AND VENTILATION ENGINEER Plan of Treatment Upcoming Encounters Date Type Department Care Team (Latest Contact Info) Description 10/11/2024 9:00 AM CDT Office Visit [facility] - Orthopedic Surgery [address] [place] [phone] David Garza MD [address] [place] [phone] 11/17/2024 7:15 AM CDT Hospital Encounter [facility] [address] [place] [phone] David Garza MD [address] [place] [phone] Surgery General 11/17/2024 7:15 AM CDT - 11/17/2024 9:47 AM CDT Surgery [facility] [address] [place] [phone] David Garza MD [address] [place] [phone] TOTAL KNEE ARTHROPLASTY- RIGHT Scheduled Procedures Name Priority Associated Diagnoses Date/Ti me ARTHROPLASTY TOTAL KNEE Diagnosis unknown 11/17/2024 7:15 AM CDT Health Maintenance Due Date Last Done Comments COLOGUARD (AGES 45-75) - COLON CA SCREENING 1960 COLON MONITORING 1960 COLONOSCOPY - COLON CA SCREENING 1960 CT COLONOGRAPHY - COLON CA SCREENING 1960 Colorectal Cancer Screening 1960 FIT - COLON CA SCREENING 1960 FLEX SIG - COLON CA SCREENING 1960 LIPID TESTING 1960 PAP SMEAR 1960 HIV SCREENING 09/03/1975 HEPATITIS C SCREENING 08/29/1978 DTAP/TDAP/TD VACCINES (1 - Tdap) 09/03/1979 PNEUMOCOCCAL VACCINE 50+ (1 of 1 - PCV) 2010 ZOSTER VACCINE (1 of 2) 2010 MAMMOGRAM 07/06/2019 07/06/2017 Respiratory Syncytial Virus (RSV) Vaccine Pt: or over 60 yrs (1 - Risk 60-74 years 1-dose series) 2020 COVID-19 VACCINE (1 - season) 2024 DEPRESSION SCREENING 06/21/2024 02/09/2024 SCREENING FOR DIABETES 05/02/2027 05/02/2024, 2023 INFLUENZA VACCINE Completed 03/29/2024, , 04/06/2019, Additional history exists HEPATITIS B VACCINE Aged Out No longe r eligible based on patient's age to complete this topic HIB VACCINE Aged Out No longer eligi ble based on patient's age to complete this topic HPV VACCINE Aged Out No longer eligi ble based on patient's age to complete this topic MENINGOCOCCAL (Group B) VACCINE SHARED DECISION-MAKING Aged Out No longer eligible based on patient's age to complete this topic MENINGOCOCCAL GROUPS A/C/Y/W VACCINE Aged Out No longer eligible based on patient's age to complete this topic Medical Devices Implanted Type Area Expanded Duty Dental Assistant Device Identifier Shelf Expiration Date Model / Serial / Lot Deep Dished With Jrny Lock Implanted:Qty: 1 on 05/22/2024 by David Garza MD at [facility] [employer] [id number] 02/08/2032 [id number] / / [id number] Porous Tibia Baseplate W/Jrny Lock Implanted:Qty: 1 on 05/22/2024 by David Garza MD at [facility] [employer] [id number] 03/25/2034 [id number] Legion Por Cr Vaughan Fem L Sz 4 Implanted:Qty: 1 on 05/22/2024 by David Garza MD at [facility] [employer] [id number] 01/23/2034 [id number] / [id number] Procedures Procedure Name Priority Date/Time Associated Diagnosis Comments XR KNEE LEFT 4VW OR MORE Routine 06/20/2024 11:24 AM HEATING AND VENTILATION ENGINEER History of total left knee replacement COMPREHENSIVE METABOLIC PANEL Pre-Op 05/02/2024 7:10 AM HEATING AND VENTILATION ENGINEER Preprocedural examination from Last 3 Months or Most Recently Relevant to Health Maintenance Results * XR Knee Left 4Vw or More (06/20/2024 11:24 AM HEATING AND VENTILATION ENGINEER) Anatomical Region Laterality Modality Lower Extremity Radiographic Poonam ging 06/20/2024 12:2 1 PM HEATING AND VENTILATION ENGINEER Narrative 06/20/2024 12:22 PM HEATING AND VENTILATION ENGINEER PROCEDURE: XR KNEE LEFT 4VW OR MORE DATE/TIME OF EXAM: 06/20/2024 11:24 AM CLINICAL INFORMATION: None relevant/not provided if blank. Indication: Z96.652: Presence of left artificial knee joint XR KNEE LEFT 4VW OR MORE, AP, LATERAL, SUNRISE AND TUNNEL VIEWS. HISTORY: Z96.652: Presence of left artificial knee joint COMPARISON: 02/09/2024 FINDINGS/IMPRESSION: 1.The patient underwent tibiofemoral arthroplasty in the interval which appears uncomplicated. Alignment is normal. 2.No acute fracture, dislocation, suspicious intrinsic bony lesions, or suspicious soft tissue abnormalities are identified. 3.There is no tilting of patella, translation of patella, patella feliciano or patellar enthesopathy. 4.There is no joint effusion. > Interpreting Provider: Mateo Damian MD on 06/20/2024 12:22 PM Procedure Note Mateo Damian MD - 06/20/2024 PROCEDURE: XR KNEE LEFT 4VW OR MORE DATE/TIME OF EXAM: 06/20/2024 11:24 AM CLINICAL INFORMATION: None relevant/not provided if blank. Indication: Z96.652: Presence of left artificial knee joint XR KNEE LEFT 4VW OR MORE, AP, LATERAL, SUNRISE AND TUNNEL VIEWS. HISTORY: Z96.652: Presence of left artificial knee joint COMPARISON: 02/09/2024 FINDINGS/IMPRESSION: 1.The patient underwent tibiofemoral arthroplasty in the interval which appears uncomplicated. Alignment is normal. 2.No acute fracture, dislocation, suspicious intrinsic bony lesions, or suspicious soft tissue abnormalities are identified. 3.There is no tilting of patella, translation of patella, patella altaor patellar enthesopathy. 4.There is no joint effusion. > Interpreting Provider: Mateo Damian MD on 06/20/2024 12:22 PM David Garza MD DIAGNOSTIC IMAGING ORDERABLES * (ABNORMAL) COMPREHENSIVE METABOLIC PANEL (05/02/2024 7:10 AM [facility]) Glucose 94 70 - 99 mg/dL 05/02/2024 8:01 AM [facility] Sodium 141 136 - 145 mmol/L 05/02/2024 8:01 AM [facility] Potassium 4.5 3.5 - 5.1 mmol/L 05/02/2024 8:01 AM [facility] Chloride 109(H) 98 - 107 mmol/L 05/02/2024 8:01 AM [facility] CO2 24 22 - 29 mmol/L 05/02/2024 8:01 AM [facility] Calcium 9.7 8.4 - 10.4 mg/dL 05/02/2024 8:01 AM [facility] Anion Gap 8 6 - 16 mmol/L 05/02/2024 8:01 AM [facility] BUN 15 7 - 26 mg/dL 05/02/2024 8:01 AM [facility] Creatinine 0.71 0.57 - 1.11 mg/dL 05/02/2024 8:01 AM [facility] Alkaline Phosphatase 105 40 - 150 U/L 05/02/2024 8:01 AM HEATING AND VENTILATION ENGINEER [facility] ALT 23 0 - 55 U/L 05/02/2024 8:01 AM HEATING AND VENTILATION ENGINEER [facility] AST 20 5 - 34 U/L 05/02/2024 8:01 AM HEATING AND VENTILATION ENGINEER [facility] Protein Total 7.1 6.4 - 8.3 gm/dL 05/02/2024 8:01 AM HEATING AND VENTILATION ENGINEER [facility] Albumin 4.0 3.4 - 5.0 gm/dL 05/02/2024 8:01 AM HEATING AND VENTILATION ENGINEER [facility] Bilirubin Total 0.5 0.2 - 1.2 mg/dL 05/02/2024 8:01 AM HEATING AND VENTILATION ENGINEER [facility] eGFR by CKD-EPI >90 >=90 mL/min/1.7 3 m2 05/02/2024 8:01 AM HEATING AND VENTILATION ENGINEER [facility] Blood BLOOD SPECIMEN / Unknown Venipuncture / Unknown 05/02/2024 7:10 AM HEATING AND VENTILATION ENGINEER 05/02/2024 7:40 AM HEATING AND VENTILATION ENGINEER David Garza MD LAB - CHEMISTRY ORD ERABLES [facility] [address] [place] [address] from Last 3 Months or Most Recently Relevant to Health Maintenance Advance Directives * Full Code (Latest Code Status on File) Date Activated Date Inactivated Comments 05/22/2024 4:34 PM 05/23/2024 3:48 PM Care Teams Biology Adjunct Instructor Relationship Specialty Start Date End Date Britney Hernandez APRN-CHRISTI [address] [phone] PCP - General Nurse Practitioner Adult Health 02/09/24
--- OUTSIDE RECORDS SUMMARY | 2024-09-11 07:02 | XMS_ITS | Clinical Summary ---
Author Organization [facility] Address [address] [place] [address] Phone Care Team Providers Care Home Support Worker Name Role Phone Minerva Baldwin MD Primary [...] Administration Dates Next Due Influenza, Unspecified 04/07/2023 Family History Medical History Relation Name Comments Diabetes Child Family history of diabetes mellitus - (Added by TW Conv) Breast cancer Mother Family history of malignant neoplasm of breast - (Added by TW Conv) Relation Name Status Comments Child Mother Social History Tobacco Use Types Packs/Day Years Used Date Smoking Tobacco: Every Day Cigarettes Smokeless Tobacco: Never Tobacco Cessation:Ready to Q uit: Not Asked; Counseling Given: Not Answered Personal Safety Answer Date Recorded Getting School Help Needed Not on file 06/09 Comments Unknown Sex and Gender Information Value Date Recorded Sex Assigned at Not on file Legal Sex Female 9:12 AM OVERHAULER HELPER Gender Identity Female 06/09/2023 2:24 PM OVERHAULER HELPER Sexual Orientation Straight 06/09/2023 2: 24 PM OVERHAULER HELPER Obstetrics History Last Filed Vital Signs Vital Sign Reading Time Taken Comments Blood Pressure 135/89 08/17/2017 10:05 AM OVERHAULER HELPER Pulse 98 08/17/2017 10:05 AM OVERHAULER HELPER Temperature - - Respiratory Rate - - Oxygen Saturation 99% 07/30/2017 1:28 PM OVERHAULER HELPER Inhaled Oxygen Concentration - - Weight 86.2 kg (190 lb) 08/09/2023 8:59 AM OVERHAULER HELPER Height 149.5 cm (4' 10.85 ) 08/09/2023 8:[address] Body Mass Index 38.57 08/09/2023 8:59 AM OVERHAULER HELPER Plan of Treatment Health Maintenance Due Date Last Done Comments Breast Cancer Screening-Mammogram 1960 Cervical Cancer Screening 1960 Colon Cancer Screening-Colonoscopy 1960 Depression Screening 1960 Hepatitis C Screening 1960 DTaP/Tdap/Td Vaccine (1 - Tdap) 09/03/1971 Hepatitis B Screening 1978 Regular Well Visit/Exam 18-64 1978 Pneumococcal vaccine <65 (1 of 2 - PCV) 09/03/1979 Zoster Vaccine (1 of 2) 2010 Influenza Vaccine (#1) 2024 3, 04/06/2019, 03/28/2018, Additional history exists Insurance [facility] H[facility]/PPO Address: [address] [address] [place] [address] [facility] H[facility]/PPO Address: [address] [address] [place] [address] Care Teams Home Support Worker Relationship Specialty Start Date End Date Minerva Baldwin MD [address] [place] [address] [place] [address] PCP - General Family Practice 06/09/23
--- OUTSIDE RECORDS SUMMARY | 2024-09-11 07:03 | XMS_ITS | Clinical Summary ---
Author Organization [facility] Address [address] [place] [phone] Phone Care Team Providers Care Subsorter Name Role Phone Unavailable Primary Care Provider Unavailabl e Immunizations Immunization Administration Dates Next Due INFLUENZA VACCINE QUADRIVALENT 3 YR UP PF IM 01/2018,03/29/2017 INFLUENZA VACCINE QUADRIVALENT 6 MOS UP PF IM Social History Tobacco Use Types Packs/Day Years Used Date Smoking Tobacco: Never Assessed Comments Unknown Sex and Gender Information Value Date Recorded Sex Assigned at Not on file Legal Sex Female 11:47 AM STRUCTURAL IRON WORKER Gender Identity Not on file Sexual Orientation Not on file Plan of Treatment Health Maintenance Due Date Last Done Comments DTAP/TDAP/TD VACCINES (1 - Tdap) 09/03/1979 PAP SMEAR 1981 CERVICAL CANCER SCREENING 1990 HPV/Cotest 1990 PAP SMEAR 1990 BREAST CANCER SCREENING 2000 COLORECTAL SCREENING 2005 Colorectal Cancer Screening 2005 FIT-DNA Q 3 years 2005 FIT/FOBT Q 1 year 2005 Flex Sig/CT Colonography Q 5 years 2005 ZOSTER VACCINE (1 of 2) 2010 INFLUENZA VACCINE (#1) 2024 9, 03/28/2018, 03/29/2017 RSV VACCINE (60+ or ) (1 - 1-dose 75+ series) 09/03/2035 PNEUMOCOCCAL VACCINE 0-49 YEARS Aged Out No longer eligible b ased on patient's age to complete this topic Insurance [facility] [id number] [facility] Address: [facility] [id number] [place] [address]
--- OUTSIDE RECORDS SUMMARY | 2024-09-11 07:03 | XMS_ITS ---
Author Name David Garza Address [address] , [address] [place] [address] Phone [phone] [facility] Address [address] [place] [address] Phone [phone] Care Team Providers Care Sole Tier Name Role Phone David Garza Unavailable [phone] Functional Status No Results Mental Status No Results Allergies and Intolerances Name Onset Date Reaction Severity erythromycin (Allergy) WedMay 21 00:12:00 EST 2 024 morphine (Allergy) WedMay 21 00:12:00 EST 2023 azithromycin (Allergy) WedMay 21 00:12:00 EST 2 024 Encounters Program Name Primary Diagnosis Admission Date/Time Dis charge Date/Time Home Care WedMay 23 19:00 :00 EST 2023Jun 15 18:59:59 EST 2023 Medications Medication Directions Start Date End Date Aspir-Low 81 mg tablet,delayed release 1 TAB TABLET, DELAYED RELEASE (ENTERIC COATED) Oral 2 Times Daily for 30 Days WedMay 24:00:00 EST 2023Jun 15:00:00 EST 2023 celecoxib 100 mg capsule 1 CAP CAPSULE O ral 2 Times Daily for 30 Days WedMay 24:00:00 EST 2023Jun 15:00:00 EST 2023 famotidine 20 mg tablet 1 TAB TABLET Ora l 2 Times Daily for 30 Days WedMay 24:00:2023Jun 15:00:00 EST 2023 [place] 5 mg-325 mg tablet 1 TAB TABLET Or al PRN Every 4 Hours PRN PAIN WedMay 24:00:00 EST 2023Jun 15 01:00:00 EST 2023 pregabalin 50 mg capsule 1 TAB CAPSULE O ral 2 Times Daily for 30 Days WedMay 24 01:00:00 EST 2023Jun 15 01:00:00 EST 2023 Colace 100 mg capsule 1 CAP CAPSULE Oral 2 Times Daily HOLD FOR LOOSE STOOLS WedMay 24 01:00:00 EST 2023Jun 15 01:00:00 EST 2023 Problems Active Concerns * Personal history of nicotine dependence* Code: * Start Date: WedMay 24 00:00:00 2023 * End Date: * Text: * Other [facility] therapy* Code: * Start Date: WedMay 24 00:00:00 EST 2023 * End Date: * Text: * Other reduced mobility* Code: * Start Date: WedMay 24 00:00:00 EST 2023 * End Date: * Text: * Presence of left artificial knee joint* Code: * Start Date: WedMay 24 00:00:00 2023 * End Date: * Text: * Aftercare following joint replacement surgery* Code: * Start Date: WedMay 24 00:00:00 EST 2023 * End Date: * Text: Reason for Referral
== END 2024-09-11 06:57 | disposition home or self-care (01) ==
PROVIDERS: Visit Provider Nurse Practitioner Family
DX: N20.1 Calculus of ureter (principal); N13.4 Hydroureter; K43.9 Ventral hernia without obstruction or gangrene
CPT/HCPCS: 74018; 74176

== ENCOUNTER 2024-09-29 00:40 | Day surgery (SDC) | payer OTHER, SELFPAY ==
[2024-09-27 11:09] VITALS: BMI 39.1
--- NOTE | 2024-09-27 11:19 | PC.NURSE ---
Report to the Outpatient Waiting Room, entrance under the green pavilion located off [facility], at time _0900_ on date _[id number]_. Planned Procedure Time: _1100_.? Time changes happen often and if your time is changed the preop area will call you the afternoon before. - You and your visitor will be asked to self-screen and do not enter if you have any COVID symptoms. Please call surgeon if you need to reschedule. - A mask is optional within the hospital at this time. Patients may have clear liquids (water, carbonated beverages, clear teas, apple juice) until 3 hours prior to surgery with a maximum of 20 ounces. - No food from midnight until time of surgery and no smoking, or chewing tobacco (or any form of nicotine). No chewing gum, candy or mints. Take only the following medications with a SIP of water on the morning of surgery: ____None___ DO NOT STOP ANY OF YOUR OTHER PRESCRIPTION MEDICATIONS PRIOR TO SURGERY EXCEPT THE FOLLOWING Hold all vitamins and supplements for 3 days per anesthesiologist. Medications to discontinue per physician Date to take last dose___Stop now.__ Please no make-up, nail chinese, hairspray, perfume, deodorant, or body powder the day of surgery.? No jewelry (including any body piercings) or valuables the day of surgery, leave them at home.? Please take a shower or bath the night before, or the morning of, surgery with an antibacterial soap.? Wear comfortable, loose fitting clothing.? - Jewelry must be removed prior to entering the operating room.? Rings and piercings that are not removed may be cut off. - The hospital will not accept responsibility for valuables.? - Please leave all valuables, including medications, at home the day of surgery. If you are going home after surgery, a licensed tractor trailer truck driver must drive you home.? - NO public transportation without another adult if you receive anesthesia. - We recommend that an adult stay with you for 24 hours following discharge. - We also recommend that you do not drive, make important decision, drink alcoholic beverages, or take any drugs that were not prescribed by your health care provider for at least 24 hours after your discharge time. Follow any additional instructions given to you from your surgeon. Telephone instructions given to __Rosalee__and asked if any additional questions and then verbalized understanding. Patient advised to call surgeon office or pre surgery nurse liaison [phone] if any additional questions.
[2024-09-29] VITALS (8 sets, daily range): BP systolic 107–135; BP diastolic 47–82; PULSE 47–77; RESP 10–18; TEMP 36.2–36.4; O2SAT 97–100; BMI 40.4
--- NOTE | ~2024-09-29 | XR_ITS ---
EXAMINATION: XR fluoroscopy no charge DATE: 09/29/2024 11:11 INDICATION: Attempted cystogram TECHNIQUE: 2 fluoroscopic images of the abdomen and pelvis were obtained during procedure performed zan Figueroa. Radiologist was not present for the imaging or procedure. The amount of fluoroscopy hansa e used during this procedure was 0.1 minutes. Total DAP was 0.0362 mGym^2. COMPARISON: None. FINDINGS: Images demonstrate a cystoscope projecting over the central pelvis. Normal bowel gas pattern. IMPRESSION: 1. Fluoroscopy utilized during attempted cystogram. See procedure note for further detail. Reviewed, dictated and finalized at location B. IMPRESSION: 1. Fluoroscopy utilized during attempted cystogram. See procedure note for furt her detail.
--- NOTE | ~2024-09-29 | CT_ITS ---
Non-contrast CT scan of the Abdomen and Pelvis Clinical indication: Cystoscopy preop Technique: 2.5 mm axial scans were obtained through the abdomen and pelvis without intravenous or or al contrast. Dose reduction technique was used on this scan by utilizing automated exposure control a nd iterative reconstruction technique. The dose-length product (DLP) was 516.94 mGy-cm. COMPARISON: 09/11/2024 Findings: Images through the lung bases reveal no abnormalities. Stable 5 mm distal left ureteral stone. No hydronephrosis evident. Right kidney unremarkable. Left ki dney unremarkable otherwise. Multiple hepatic cysts are unchanged. Possible cyst hypodense lesion with areas of peripheral calcifi cation of the dome of liver is also unchanged. Stable low-density right adrenal nodule, likely adenom a. The spleen, pancreas, gallbladder, and left adrenal gland appear normal. There is no aortic aneur ysm. There is no evidence of bowel obstruction. Rectosigmoid anastomosis noted. Focal hernia superior to t he umbilicus contains a focal portion of the mid transverse colon. Additional fat-containing ventral hernias are present more superiorly. Images through the pelvis were performed. There is no evidence of ascites or lymphadenopathy. Urinary bladder unremarkable. No pelvic mass seen. No ascites. Minimal chronic compression deformities of L2 and L4 present. Impression: Ventral hernia contains a focal portion of the mid transverse colon. No bowel obstruction or bowel wa ll thickening. Stable 5 mm distal left ureteral stone. No hydronephrosis. Additional fat-containing ventral hernias more superiorly. Stable hepatic cystic lesions as well as nonsimple cyst with peripheral calcification. Reviewed, dictated and finalized at [facility]. Impression: Ventral hernia contains a focal portion of the mid transverse colon. No bowel o bstruction or bowel wall thickening. Stable 5 mm distal left ureteral stone. No hydronephrosis. Additional fat-containing ventral hernias more superiorly. Stable hepatic cystic lesions as well as nonsimple cyst with peripheral calcifi cation.
--- NOTE | ~2024-09-29 | XR_ITS ---
EXAMINATION: XR retrograde pyelo w/stent RT DATE: 09/29/2024 12:42 INDICATION: Left intraureteral stent placement TECHNIQUE: 3 fluoroscopic images of the abdomen and pelvis were obtained during procedure performed zan Figueroa. Radiologist was not present for the imaging or procedure. The amount of fluoroscopy hansa e used during this procedure was 0.1 minutes. Total DAP was 0.0362 mGym^2. COMPARISON: None. FINDINGS: Images demonstrate retrograde contrast injection into the left ureter with no evident filling defects or urothelial irregularities the contrast opacified portion of the mid to distal ureter. Subsequent images demonstrate placement of a left intraureteral stent with loops formed over the expected locati on of the bladder and left renal pelvis. IMPRESSION: 1. Fluoroscopy utilized during internal ureteral stent placement which is in expected position. See p rocedure note for further detail. Reviewed, dictated and finalized at location A. IMPRESSION: 1. Fluoroscopy utilized during internal ureteral stent placement which is in ex pected position. See procedure note for further detail.
--- OUTSIDE RECORDS SUMMARY | 2024-09-29 00:43 | XMS_ITS | Data Portability ---
Author Organization [place] - [facility], panchoAgustin Luevano Address [address] [place] [address] Care Team Providers Care Utilization Coordinator Name Role Phone BENITO LAZAR Orthopedic Surgeon [phone] BRITNEY HERNANDEZ Primary Care Provider Assessment No assessment recorded. Plan of Treatment Reminders Order Date Submit Date Provider Last Modified By Organization Details Last Modified Time Details Appointments InPerson; PE Routine- 60 2024 08:30A Moris Hernandez MANAGER OF FINANCIAL Not available Not available Not available Lab urinalysi s, complete 2024 025 [place] [facility], [address] [place] [address], [address], 07/24/2024 09:09:32 culture, urine 2024 025 [place] [facility] 2022 Farida Giron, [address], [address], 07/24/2024 09:09:33 urinalysi s, dipstick 2024 025 Not available 07/18/2024 14:31:57 urinalysi s complete, reflex culture 2024 025 [place] [facility] [address] [place], [address], 07/06/2024 04:11:40 Referral None recorded. Procedures None recorded. Surgeries None recorded. Imaging None recorded. Medication Orders None recorded. Patient TargetsNo targets recorded. Patient Instructions Encounter Date Encounter Id Patient Instructions Last Modified By Organization Details Last Modified Time 07/04/2024 [id number] blood in the urine: care instructions Not available 07/04/2024 15:09:11 07/18/2024 [id number] frequent urination: care instructions Not available 07/18/2024 13:09:10 Reason for Referral None Reported. Results Created Date Observation Date Name Description Value Unit Range Abnormal Flag Note LastModifiedBy Organization Detail LastModifiedTime 07/04/1907/05/2024 UA/M W/RFL X CULTU RE, ROUTI NE specific gravity 1.009 1.005- 1.030 normal Not Available [facility] ([facility]) [address] [place], [address], 07/06/2024 04:11:40 07/04/19 25 07/05/2024 UA/M W/RFL X CULTU RE, ROUTI NE pH 7.0 5.0-7. 5 normal Not Available [facility] ([facility]) [address] [place], [address], 07/06/2024 04:11:40 07/04/19 25 07/05/2024 UA/M W/RFL X CULTU RE, ROUTI NE urine-color Yellow yellow Not Available [facility] ([facility]) [address] [place], [address], 07/06/2024 04:11:40 07/04/1907/05/2024 UA/M W/RFL X CULTU RE, ROUTI NE appearance Clear clear Not Available [facility] ([facility]) [address] [place], [address], 07/06/2024 04:11:40 07/04/19 25 07/05/2024 UA/M W/RFL X CULTU RE, ROUTI NE WBC esterase Trace negati ve abnormal Not Available [facility] ([facility]) [address] [place], [address], 07/06/2024 04:11:40 07/04/19 25 07/05/2024 UA/M W/RFL X CULTU RE, ROUTI NE protein Negati ve negati ve/tra ce Not Available [facility] ([facility]) [address] [place], [address], 07/06/2024 04:11:40 07/04/19 25 07/05/2024 UA/M W/RFL X CULTU RE, ROUTI NE glucose Negati ve negati ve Not Available [facility] ([facility]) [address] [place], [address], 07/06/2024 04:11:40 07/04/19 25 07/05/2024 UA/M W/RFL X CULTU RE, ROUTI NE ketones Negati ve negati ve Not Available [facility] ([facility]) [address] [place], [address], 07/06/2024 04:11:40 07/04/19 25 07/05/2024 UA/M W/RFL X CULTU RE, ROUTI NE occult blood 3+ negati ve abnormal Not Available [facility] ([facility]) [address] [place], [address], 07/06/2024 04:11:40 07/04/19 25 07/05/2024 UA/M W/RFL X CULTU RE, ROUTI NE bilirubin Negati ve negati ve Not Available [facility] ([facility]) [address] [place], [address], 07/06/2024 04:11:40 07/04/19 25 07/05/2024 UA/M W/RFL X CULTU RE, ROUTI NE urobilinogen ,semi-qn 0.2 mg/dL 0.2-1. 0 normal Not Available [facility] ([facility]) [address] [place], [address], 07/06/2024 04:11:40 07/04/19 25 07/05/2024 UA/M W/RFL X CULTU RE, ROUTI NE nitrite, urine Negati ve negati ve Not Available [facility] ([facility]) [address] [facility], [place], [address], 07/06/2024 04:11:40 07/04/19 25 07/05/2024 UA/M W/RFL X CULTU RE, ROUTI NE microscopic examination See below: Micro scopi c was indic ated and was perfo rmed. Not Available [facility] ([facility]) [address] [place], [address], 07/06/2024 04:11:40 07/04/19 25 07/05/2024 UA/M W/RFL X CULTU RE, ROUTI NE WBC 6-10 /hpf 0 - 5 abnormal Not Available [facility] ([facility]) [address] [facility], [place], [address], 07/06/2024 04:11:40 07/04/19 25 07/05/2024 UA/M W/RFL X CULTU RE, ROUTI NE RBC 3-10 /hpf 0 - 2 abnormal Not Available [facility] ([facility]) [address] [facility], [place], [address], 07/06/2024 04:11:40 07/04/19 25 07/05/2024 UA/M W/RFL X CULTU RE, ROUTI NE epithelial cells (non renal) 0-10 /hpf 0 - 10 Not Available [facility] ([facility]) [address] [place], [address], 07/06/2024 04:11:40 07/04/19 25 07/05/2024 UA/M W/RFL X CULTU RE, ROUTI NE epithelial cells (renal) MANAGER OF FINANCIAL Not Available [facility] ([facility]) [address] [place], [address], 07/06/2024 04:11:40 07/04/19 25 07/05/2024 UA/M W/RFL X CULTU RE, ROUTI NE casts None seen /lpf none seen Not Available [facility] ([facility]) [address] [facility], [place], [address], 07/06/2024 04:11:40 07/04/19 25 07/05/2024 UA/M W/RFL X CULTU RE, ROUTI NE cast type MANAGER OF FINANCIAL Not Available [facility] ([facility]) [address] [facility], [place], [address], 07/06/2024 04:11:40 07/04/19 25 07/05/2024 UA/M W/RFL X CULTU RE, ROUTI NE crystals MANAGER OF FINANCIAL Not Available [facility] ([facility]) [address] [facility], [place], [address], 07/06/2024 04:11:40 07/04/19 25 07/05/2024 UA/M W/RFL X CULTU RE, ROUTI NE crystal type MANAGER OF FINANCIAL Not Available [facility] ([facility]) [address] [facility], [place], [address], 07/06/2024 04:11:40 07/04/19 25 07/05/2024 UA/M W/RFL X CULTU RE, ROUTI NE mucus threads MANAGER OF FINANCIAL Not Available [facility] ([facility]) [address] [facility], [place], [address], 07/06/2024 04:11:40 07/04/19 25 07/05/2024 UA/M W/RFL X CULTU RE, ROUTI NE bacteria None seen none seen/f ew Not Available [facility] ([facility]) [address] [facility], [place], [address], 07/06/2024 04:11:40 07/04/19 25 07/05/2024 UA/M W/RFL X CULTU RE, ROUTI NE yeast MANAGER OF FINANCIAL Not Available [facility] ([facility]) [address] [facility], [place], [address], 07/06/2024 04:11:40 07/04/19 25 07/05/2024 UA/M W/RFL X CULTU RE, ROUTI NE trichomonas MANAGER OF FINANCIAL Not Available [facility] ([facility]) [address] [facility], [place], [address], 07/06/2024 04:11:40 07/04/19 25 07/05/2024 UA/M W/RFL X CULTU RE, ROUTI NE comment MANAGER OF FINANCIAL Not Available [facility] ([facility]) [address] [facility], [place], [address], 07/06/2024 04:11:40 07/04/19 25 07/05/2024 UA/M W/RFL X CULTU RE, ROUTI NE microscopic examination MANAGER OF FINANCIAL Not Available [facility] ([facility]) [address] [facility], [place], [address], 07/06/2024 04:11:40 07/04/19 25 07/05/2024 UA/M W/RFL X CULTU RE, ROUTI NE urinalysis reflex Commen t This speci men has refle xed to a Urine Cultu re. Not Available [facility] ([facility]) [address] [facility], [place], [address], 07/06/2024 04:11:40 07/04/19 25 07/06/2024 UA/M W/RFL X CULTU RE, ROUTI NE urine culture, routine Final report Not Available [facility] ([facility]) [address] [place], [address], 07/06/2024 04:11:40 07/04/19 25 07/06/2024 UA/M W/RFL X CULTU RE, ROUTI NE result 1 COMMEN T Mixed uroge nital zander 10,00 0-25, 000 colon y formi ng units per mL Not Available [facility] ([facility]) [address] [place], [address], 07/06/2024 04:11:40 07/04/1907/10/[address] URINE CULTU RE urine culture result COMMEN T Mixed uroge nital zander Not Available [facility] ([facility]) [address] [facility], [place], [address], 07/10/2024 09:08:52 07/04/1907/06/2024 WRITT EN AUTHO RIZAT ION written authorizatio n Commen t [place] en Autho rizat ion Recei marian. Autho rizat ion recei marian from Melva Gonzalez abebe for Link Reque st 07-06 Logge d by Nazario rivera Not Available [facility] ([facility]) [address] [place], [address], 07/10/2024 09:08:52 07/18/1907/19/2024 URINA LYSIS , COMPL ETE specific gravity 1.009 1.005- 1.030 normal Not Available [facility] ([facility]) [address] [place], [address], 07/24/2024 09:09:32 07/18/19 25 07/19/2024 URINA LYSIS , COMPL ETE pH 6.5 5.0-7. 5 normal Not Available [facility] ([facility]) [address] [place], [address], 07/24/2024 09:09:32 07/18/1907/19/2024 URINA LYSIS , COMPL ETE urine-color Yellow yellow Not Available [facility] ([facility]) [address] [place], [address], 07/24/2024 09:09:32 07/18/19 25 07/19/2024 URINA LYSIS , COMPL ETE appearance Clear clear Not Available [facility] ([facility]) [address] [facility], [place], [address], 07/24/2024 09:09:32 07/18/19 25 07/19/2024 URINA LYSIS , COMPL ETE WBC esterase Negati ve negati ve Not Available [facility] ([facility]) [address] [facility], [place], [address], 07/24/2024 09:09:32 07/18/19 25 07/19/2024 URINA LYSIS , COMPL ETE protein Negati ve negati ve/tra ce Not Available [facility] ([facility]) [address] [facility], [place], [address], 07/24/2024 09:09:32 07/18/19 25 07/19/2024 URINA LYSIS , COMPL ETE glucose Negati ve negati ve Not Available [facility] ([facility]) [address] [facility], [place], [address], 07/24/2024 09:09:32 07/18/1907/19/2024 URINA LYSIS , COMPL ETE ketones Trace negati ve abnormal Not Available [facility] ([facility]) [address] [facility], [place], [address], 07/24/2024 09:09:32 07/18/19 25 07/19/2024 URINA LYSIS , COMPL ETE occult blood Negati ve negati ve Not Available [facility] ([facility]) [address] [place], [address], 07/24/2024 09:09:32 07/18/1907/19/2024 URINA LYSIS , COMPL ETE bilirubin Negati ve negati ve Not Available [facility] ([facility]) [address] [place], [address], 07/24/2024 09:09:32 07/18/19 25 07/19/2024 URINA LYSIS , COMPL ETE urobilinogen ,semi-qn 0.2 mg/dL 0.2-1. 0 normal Not Available [facility] ([facility]) [address] [facility], [place], [address], 07/24/2024 09:09:32 07/18/19 25 07/19/2024 URINA LYSIS , COMPL ETE nitrite, urine Negati ve negati ve Not Available [facility] ([facility]) [address] [facility], [place], [address], 07/24/2024 09:09:32 07/18/19 25 07/19/2024 URINA LYSIS , COMPL ETE microscopic examination Commen t Micro scopi c follo ws if indic ated. Not Available [facility] ([facility]) [address] [facility], [place], [address], 07/24/2024 09:09:32 07/18/19 25 07/19/2024 URINA LYSIS , COMPL ETE microscopic examination See below: Micro scopi c was indic ated and was perfo rmed. Not Available [facility] ([facility]) [address] [facility], [place], [address], 07/24/2024 09:09:32 07/18/19 25 07/19/2024 URINA LYSIS , COMPL ETE WBC None seen /hpf 0 - 5 Not Available [facility] ([facility]) [address] [facility], [place], [address], 07/24/2024 09:09:32 07/18/19 25 07/19/2024 URINA LYSIS , COMPL ETE RBC None seen /hpf 0 - 2 Not Available [facility] ([facility]) [address] [facility], [place], [address], 07/24/2024 09:09:32 07/18/19 25 07/19/2024 URINA LYSIS , COMPL ETE epithelial cells (non renal) None seen /hpf 0 - 10 Not Available [facility] ([facility]) [address], [place], [address], 07/24/2024 09:09:32 07/18/19 25 07/19/2024 URINA LYSIS , COMPL ETE epithelial cells (renal) MANAGER OF FINANCIAL Not Available [facility] ([facility]) [address], [place], [address], 07/24/2024 09:09:32 07/18/19 25 07/19/2024 URINA LYSIS , COMPL ETE casts None seen /lpf none seen Not Available [facility] ([facility]) [address], [place], [address], 07/24/2024 09:09:32 07/18/19 25 07/19/2024 URINA LYSIS , COMPL ETE cast type MANAGER OF FINANCIAL Not Available [facility] ([facility]) [address] [facility], [place], [address], 07/24/2024 09:09:32 07/18/19 25 07/19/2024 URINA LYSIS , COMPL ETE crystals MANAGER OF FINANCIAL Not Available [facility] ([facility]) [address] [facility], [place], [address], 07/24/2024 09:09:32 07/18/19 25 07/19/2024 URINA LYSIS , COMPL ETE crystal type MANAGER OF FINANCIAL Not Available [facility] ([facility]) [address] [facility], [place], [address], 07/24/2024 09:09:32 07/18/19 25 07/19/2024 URINA LYSIS , COMPL ETE mucus threads MANAGER OF FINANCIAL Not Available [facility] ([facility]) [address] [facility], [place], [address], 07/24/2024 09:09:32 07/18/19 25 07/19/2024 URINA LYSIS , COMPL ETE bacteria None seen none seen/f ew Not Available [facility] ([facility]) [address] [facility], [place], [address], 07/24/2024 09:09:32 07/18/19 25 07/19/2024 URINA LYSIS , COMPL ETE yeast MANAGER OF FINANCIAL Not Available [facility] ([facility]) [address] [facility], [place], [address], 07/24/2024 09:09:32 07/18/19 25 07/19/2024 URINA LYSIS , COMPL ETE trichomonas MANAGER OF FINANCIAL Not Available [facility] ([facility]) [address] [facility], [place], [address], 07/24/2024 09:09:32 07/18/19 25 07/19/2024 URINA LYSIS , COMPL ETE comment MANAGER OF FINANCIAL Not Available [facility] ([facility]) [address] [facility], [place], [address], 07/24/2024 09:09:32 07/18/19 25 07/24/[address] URINE CULTU RE urine culture result COMMEN T Mixed uroge nital zander Not Available [facility] ([facility]) [address] [facility], [place], [address], 07/24/2024 09:09:33 07/18/19 25 07/18/2024 urina lysis , dipst ick Color Yellow Not Available [facility] [address] [place], [address], 07/18/2024 12:40:29 07/18/19 25 07/18/2024 urina lysis , dipst ick Appearance Clear Not Available [employer] [place] [address] [place], [address], 07/18/2024 12:40:29 07/18/19 25 07/18/2024 urina lysis , dipst ick Leukocytes negati ve Not Available [facility] [address] [place], [address], 07/18/2024 12:40:29 07/18/19 25 07/18/2024 urina lysis , dipst ick Nitrites negati ve Not Available [facility], [place] [address] [facility], [place], [address], 07/18/2024 12:40:29 07/18/19 25 07/18/2024 urina lysis , dipst ick Urobilinogen Normal (0.2) Not Available [facility], [place] [address] [place], [address], 07/18/2024 12:40:29 07/18/19 25 07/18/2024 urina lysis , dipst ick Protein negati ve Not Available [facility], [place] [address] [place], [address], 07/18/2024 12:40:29 07/18/19 25 07/18/2024 urina lysis , dipst ick Blood negati ve Not Available [facility], [place] [address] [place], [address], 07/18/2024 12:40:29 07/18/19 25 07/18/2024 urina lysis , dipst ick Specific [place] 1.010 Not Available [facility], [facility] [address] [place], [address], 07/18/2024 12:40:29 07/18/19 25 07/18/2024 urina lysis , dipst ick Ketone 5/trac e Not Available [facility], [facility] [address] [place], [address], 07/18/2024 12:40:29 07/18/19 25 07/18/2024 urina lysis , dipst ick Bilirubin negati ve Not Available [facility], [facility] [address] [facility], [place], [address], 07/18/2024 12:40:29 07/18/19 25 07/18/2024 urina lysis , dipst ick Glucose negati ve Not Available [facility], [place] [address] [facility], [place], [address], 07/18/2024 12:40:29 07/18/19 25 07/18/2024 urina lysis , dipst ick pH 5.5 Not Available [facility], [place] [address] [facility], [place], [address], 07/18/2024 12:40:29 07/19/19 25 02/09/2024 XR, arthr ogram , knee No observ ation record ed. Not Available 2024 11:00:54 Result Notes None recorded. Problems Name Problem SNOMED Code Status Onset Date Resolution Date Notes Provider Name and Address Organization Details Recorded Time History of polyp of colon 930556475 Completed 07/04/2024 Descript ion: Personal history of colonic polyps Britney Hernandez [employer] [address], [place], [address], [place] [facility] 5 15:12:32 Smoker 99631280 Completed 07/04/2024 Descript ion: Smoker unmotiva bakari to quit Removal Reason: quit smoking fall 2023 prior to TKR Britney Hernandez MANAGER [employer] [address], [place], [address], [place] [facility] 5 15:12:51 Obesity 122747321 Active Problem Code: E66.9; Problem Code Type: ICD-10; Britney Hernandez [employer] [address], [place], [address], [place] [facility] 5 15:12:10 Body mass index 30+ - obesity 445392782 Active Descript ion: BMI 39.0-39. 9,adult Britney Voyda MANAGER [employer] [address], [place], [address], [facility] 15:12:24 Bilatera l arthriti s of knees 85402730299 12797 Active Descript ion: Arthriti s of both knees Britney Voyda MANAGER [employer] [address], [place], [address], [facility] 15:12:25 Problem Notes None recorded. Procedures Surgical History Date Name Laterality Status Provider Name and Address Organization Details Recorded Time 05/22/20 24 total replacement of left knee joint completed Britney Voyda [employer]NA[employer] [address], [place], [address], [facility] 07/04/2024 15:31:49 05/17/20 24 Date of Last Mammogram completed Britney Voyda [employer] [address], [place], [address], [facility] 07/04/2024 15:31:42 04/22/20 23 Date of Last Colonoscopy completed Britney Voyda [employer] [address], [place], [address], [facility] 07/04/2024 15:30:41 04/22/20 23 Colonoscopy completed Britney Voyda [employer]NA[employer] [address], [place], [address], [facility] 07/04/2024 15:22:51 07/22/19 22 Date of Last Pap Smear completed Britney Voyda [employer] [address], [place], [address], [facility] 07/04/2024 15:29:14 02/20/20 11 colonoscopy completed Britney Voyda [employer]NA[employer] [address], [place], [address], [facility] 07/04/2024 15:18:13 04/21/20 07 Partial Hysterectomy completed Britney Voyda [employer] [address], [place], [address], [facility] 07/04/2024 15:24:21 09/20/19 03 nephrolithotomy for removal of calculus completed [employer]ney [employer] [address], [place], [address], [facility] 07/04/2024 15:15:47 09/19/18 98 [facility] [address], [place], [address], [facility] 07/04/2024 15:18:02 06/21/18 94 [facility] [employer] [address], [place], [address], [facility] 07/04/2024 15:21:59 06/21/18 92 [facility] [address], [place], [address], [facility] 07/04/2024 15:15:08 06/21/18 90 nasal sinus procedure completed Not Available [facility] 03/26/2024 05:54:07 08/19/18 87 total [facility] [address], [place], [address], [facility] 07/04/2024 15:16:47 06/21/18 80 Dilation and [facility]ttage [facility] [address], [place], [address], [facility] 07/04/2024 15:19:17 06/21/18 75 procedure on patella completed [employer]ney [facility] [employer] [address], [place], [address], [facility] 07/04/2024 15:17:34 06/21/18 69 appendectomy completed Not Available [facility] 03/26/2024 05:54:06 section completed [facility]ney [facility] [employer] [employer] [address], [place], [address], [facility] 07/04/2024 15:46:01 large intestine excision completed [employer]ney [facility] [employer] [employer] [address], [place], [address], [facility] 07/04/2024 15:20:41 Imaging Results Imaging Date Name Status [facility] Details LastModified Time 02/09/2024 XR, arthrogram , knee completed Information not available 07/20/2024 11:00:54 Procedure Notes None recorded. Medical Equipment None Reported. Allergies Allergen ID Allergen Name Allergen Category Reaction Reaction Severity Criticality Documentation Date Start Date Code Code System Note Provider Name and Address Organization Details Recorded Time 019706 erythromy jimi medicatio n diarrhea nausea vomiting Not available Not available Not available Not available 02/26/2024 4053 RxNorm Britney Voyda MANAGER [employer] [address], [place], [address], [place] [facility] 5 14:56:50 312284 azithromy jimi medicatio n diarrhea nausea vomiting Not available Not available Not available Not available 02/26/2024 29143 RxNorm Britney Voyda [employer]NA[employer] [address], [place], [address], [facility] 5 14:56:14 580537 mold extract environme nt Not available Not available Not available 02/26/2024 62960 8 RxNorm Britney Voyda MANA[employer] [address], [place], [address], [facility] 5 14:57:54 280982 codeine medicatio n Not available Not available Not available 02/26/2024 2670 RxNorm SEVER E DROWS INESS Britney Voyda MANAGER [employer] [address], [place], [address], [facility] 5 14:57:40 Medications Name Sig [...] /min 132 mm[Hg] 76 mm[Hg] Melva Forbes [facility] 4 17:01:25 Date Recorded Body height Body mass index (BMI) Body weight Body temperature Heart rate Oxygen saturation Oxygen saturation in Arterial blood by Pulse oximetry Respiratory rate Systolic blood pressure Diastolic blood pressure Provider Name and Address Organization Details Last Updated DateTime 5 152.4 cm 40.5 kg/m2 33292.3 4 g 97.6 [degF] 88 /min 99 % 99 % 12 /min 132 mm[Hg] 72 mm[Hg] Melva Forbes [place] [facility] 5 14:45:47 Date Recorded Body height Provider Name an d Address Organization Details Last Updated DateTime 07/13/2024 152.4 cm Britney [employer] [address], [place], [address], [place] [facility] 07/13/2024 12:09:23 Date Recorded Body height Body mass index (BMI) Body weight Body temperature Heart rate Oxygen saturation Oxygen saturation in Arterial blood by Pulse oximetry Respiratory rate Systolic blood pressure Diastolic blood pressure Provider Name and Address Organization Details Last Updated DateTime 5 152.4 cm 40 kg/m2 38304.4 4 g 98.3 [degF] 71 /min 99 % 99 % 12 /min 143 mm[Hg] 81 mm[Hg] Melva [place] [facility] 5 12:38:18 Date Recorded Body height Provider Name an d Address Organization Details Last Updated DateTime 07/24/2024 152.4 cm [employer] [address], [place], [address], Formerly [facility] 07/24/2024 09:26:11 Social History None recorded. Functional [...] DM at 12. Medical History Condition Response Abnormal Mammogram Y Osteoarthritis Y Kidney Stones Y Gynecological History Statement/Question Response Abnormal Pap [...] virus, quadrivalent, PF 3 completed Not Available [facility] 02/26/2024 12:02:16 zoster recombinant 4 completed Melva barrow[place] [facility] 06/08/2024 17:02:09 Pneumococcal conjugate PCV 13 4 completed Not Available [facility] 07/27/2024 22:02:42 Influenza, split virus, trivalent, PF 4 completed Not Available [facility] 07/27/2024 22:02:42 Past Encounters Encounter ID Performer Location Encounter Start Date Encounter Closed Date Diagnosis/Indication Diagnosis SNOMED-CT Code Diagnosis ICD10 Code Diagnosis Note [id number] Melva Forbes [place] [address] [place] [address] 06/08/2024 15:27:35 06/08/2024 17:21:11 Herpes zoster vaccination given [id number] 14780 Z23 [id number] Britney Hernandez NP [place] [address] [place] [address] 3 07/04/2024 14:34:59 07/04/2024 15:59:33 Blood in urine 85363295 R31.9 Unable to dip urine today as our supply is .Wi ll send urine for UA w/reflex to culture.Pt aware to hydrate well, monitor self for ssx change.Jd l call pt with lab results when rec'd.Pt verbalised understand ing and agreement with above POC. All questions and concerns were addressed. [id number] Britney Hernandez NP [place] [address] [place] [phone] 07/13/2024 11:57:54 07/13/2024 12:15:25 Acute urinary tract infection 604145874 N39.0 Pt will continue to monitor self for ssx or change.Enc ouraged hydration, avoid NSAIDs, limit ETOH.Pt verbalised understand ing and agreement with above POC. All questions and concerns were addressed. [id number] Britney Hernandez NP [employer] [place] [address] [place] [address] 07/18/2024 12:26:15 07/18/2024 14:59:10 Increased frequency of urination 109682723 R35.0 Urine dip test result neg.Will send urine for UA w/reflex to culture.Pt aware to hydrate well, monitor self for ssx change.Jd l call pt with lab results when rec'd.Cons ider referral to urology given extensive surgical hx and renal stones.Pt verbalised understand ing and agreement with above POC. All questions and concerns were addressed. [id number] Britney Hernandez [facility] [address] [place] [address] 07/24/2024 09:24:50 07/24/2024 17:29:03 Increased frequency of urination 137283140 R35.0 Reviewed results of UA/urine C&S with [...] Ramos Member ID Guarantor Name 06/08/2024 1 [facility] [employer] (O) [id number] S Jespersen [id number] S Jespersen 07/04/2024 [employer] - NON - PLAN PARTICIPANT - (MOVED-BILLED ) [id number] S Jespersen [id number] S Jespersen 07/13/2024 1 [employer] [facility] [id number] S Jespersen [id number] S Jespersen 07/18/2024 1 [employer] [facility] [id number] S Jespersen [id number] S Jespersen 07/24/2024 1 [employer] [facility] [id number] S Jespersen [id number] S Jespersen Notes Date Note Type Note [...] only very occasional norco use. Britney Hernandez [employer] [address], [place], [address], [place] [facility] 07/04/2024 15:49:24 07/13/2024 text/html Pt presents VIA [...] was felt the patient should be evaluated aply-hh-oghl, they were directed to the clinic for care either now or at a subsequent visit as indicated below. Verbal consent for telemedicine visit obtained from the patient. Britney Hernandez [employer] [address], [place], [address], [place] [facility] 07/13/2024 12:12:52 07/18/2024 text/html Pt presents for [...] current ssx similar to that. Britney Hernandez [employer] [address], [place], [address], [place] [facility] 07/18/2024 14:38:53 07/24/2024 text/html Pt presents VIA [...] was felt the patient should be evaluated ofwe-qa-bwoe, they were directed to the clinic for care either now or at a subsequent visit as indicated below. Verbal consent for telemedicine visit obtained from the patient. Britney Hernandez [employer] [address], [place], [address], [place] [facility] 07/24/2024 17:28:19 OBGyn Episode No OBEpisode recorded.
--- OUTSIDE RECORDS SUMMARY | 2024-09-29 00:43 | XMS_ITS ---
Author Organization [facility] Address [address] [place] [address] Care Team Providers Care Natural Sciences Manager Name Role Phone MaryAprilBritney Primary Care Provider [phone] ALLERGIES Allergen (clinical drug ingredient) Drug/Non Drug [...] Weight-kg 93.08 kg 04/06/2024 152/71 initially per PLASTIC CARD GRADER CARDROOM. Encounters Encounter Location Date Provider Diagnosis [facility] [address] [place] [address] 04/06/2024 Britney Emersonmarinaneris Encounter for immunization Z23 [...] Buenoneris , 03/19/2025 08:30:00 AM, [address] [place], [address], Progress Notes * Gregor ARIZADOB: (63 yo F)Acc No.[id number]:04/06/2024 Patient: Gregor ARIZA Provider: Britney Hernandez APRN :1960 Age:63 Y Sex:Female Date:04/06/2024 [facility] Subjective: * Chief Complaints: * Pnuemonia vacc, [...] Erythromycin: stomach upsetAzithromycin: stomach upsetCodeine - Criticality [facility][Allergies Verified] Objective: * Vitals: Temp:97.6F, HR:58, Oxygen sat:98%, BP:120/68mm Hg, RR:12/min, Wt:205.2lbs, Wt Ch.4 lbs, Wt Chg %: 1.68%, Ht:59in, BMI:41.44, Wt-k.08 kg 152/71 initially per PLASTIC CARD GRADER CARDROOM. * Examination: General Examination *: GENERAL APPEARANCE: [...] (Encounter for immunization) * Procedure Codes: Prevnar 3182490 HZV VACC RECOMBINANT IM [id number] IMMUNIZATION ADMIN, Modifiers: 25 * Billing Information: * Visit Code: 01845 Level 3 Est Patient Acute Care. * Procedure Codes: Prevnar 13. 27648 HZV VACC RECOMBINANT IM NJX. 29524 IMMUNIZATION ADMIN. Modifiers: 25 * Sign off [...]
--- OUTSIDE RECORDS SUMMARY | 2024-09-29 00:43 | XMS_ITS ---
Author Name David Garza Address [address] , [address] [place] [address] Phone [phone] [facility] Address [address] [place] [address] Phone [phone] Care Team Providers Care Pouako Kura [place] Maori Name Role Phone GregDavid hercules Unavailable [phone] Functional Status Mental Status Allergies and Intolerances Encounters Medications Problems Reason for Referral
--- OUTSIDE RECORDS SUMMARY | 2024-09-29 00:43 | XMS_ITS ---
Author Organization [facility] Address [address] [place] [address] Care Team Providers Care Millwork Estimator Name Role Phone Britney Hernandez Primary Care [...] Active Encounters Encounter Location Date Provider Diagnosis [address] [address] 06/08/2024 Britney Hernandez PLAN OF TREATMENT Next Appt Details Provider Name:Britney Hernandez , 03/19/2025 08:30:00 AM, [address] [place], [address], Progress Notes * Gregor CASPERDOB: (64 yo F)Acc No.[id number]:06/08/2024 Patient: Gregor CASPER Provider: Britney Hernandez APRN :1960 Age:63 Y Sex:Female Date:06/08/2024 Address:[address] [place] [address] [place] Subjective: * Chief Complaints: * 1. 2nd Shingrix vaccine. * Medical History: * Medications: Taking Aleve , Taking Glucosamine , Taking Vitamin D , Taking Vitamin E , Taking Calcium , Taking Potassium , Taking Multivitamin One PO QD , Not-Taking Diclofenac Soln& Men-Meth Wilmer Objective: Assessment: Plan: * Treatment: * Billing Information: * Visit Code: * Procedure Codes: * Sign off status: Completed true * Provider: Britney Hernandez APRN Date: 06/08/2024
--- OUTSIDE RECORDS SUMMARY | 2024-09-29 00:43 | XMS_ITS | Clinical Summary ---
Author Organization [facility] Address [address] [place] [address] Care Team Providers Care Park Worker Name Role Phone Britney Hernandez JOB PRESS OPERATOR-CORDWAINER Primary Care Provider + Source Comments [facility],non-owned Affiliates and Associated Physician Practices is amultiple site organization consisting of ambulatory clinics and hospital sitesin [place], [place], [place] and [place]. This disclosure is being madepursuant to the Care Everywhere program and may not contain all information available regarding this patient. Last updated 18.[facility] Allergies Active Allergy Reactions Criticality Noted Date [...] Thromboembolism 60 tablet 4 Active HYDROcodone-acetamin ophen ([place]) 5-325 MG tabletIndications:Pa in Take 1 (one) tablet by mouth every 4 hours as needed for Pain Reasons: Pain 42 tablet 4 Active Active Problems Problem Noted Date Diagnosed Date Osteoarthritis, unspecified osteoarthritis type, unspecified site 05/22/2024 Encounters Date Type Department Care Team Description 08/21/2024 Telephone [facility] - Orthopedic Surgery [address] [place] [phone] David Garza MD Question 08/17/2024 Telephone [facility] - Orthopedic Surgery [address] [place] [phone] David Garza MD Follow-up 08/15/2024 Telephone [facility] - Orthopedic Surgery [address] [place] [phone] Joanna Harp RN Follow-up 08/10/2024 Telephone [facility] - Orthopedic Surgery [address] [place] [phone] David Garza MD Follow-up 08/09/2024 [facility] - Orthopedic Surgery [address] [place] [phone] David Garza MD Follow-up 08/09/2024 [facility] - Orthopedic Surgery [address] [place] [phone] David Garza MD Follow-up 07/17/2024 Telephone [facility] - Orthopedic Surgery [address] [place] [phone] David Garza MD Follow-up 07/07/2024 Telephone [facility] - Orthopedic Surgery [address] [place] [phone] Joanna Harp, RN Follow-up from Last 3 Months Social History Tobacco [...] Comments Blood Pressure 126/72 05/23/2024 11:01 AM NURSING HOME ASSISTANT ADMINISTRATOR Pulse 69 05/23/2024 11:01 AM NURSING HOME ASSISTANT ADMINISTRATOR Temperature 36.9 C (98.5 F) 05/23/2024 11:01 AM NURSING HOME ASSISTANT ADMINISTRATOR Respiratory Rate 18 05/23/2024 11:01 AM NURSING HOME ASSISTANT ADMINISTRATOR Oxygen Saturation 94% 05/23/2024 4:59 AM NURSING HOME ASSISTANT ADMINISTRATOR Inhaled Oxygen Concentration - - Weight 95 kg (209 lb 6.4 oz) 05/23/2024 4:59 AM NURSING HOME ASSISTANT ADMINISTRATOR Height 152.4 cm (5') 05/23/2024 4:59 AM NURSING HOME ASSISTANT ADMINISTRATOR Body Mass Index 40.9 05/23/2024 4:59 AM NURSING HOME ASSISTANT ADMINISTRATOR Plan of Treatment Upcoming Encounters Date Type Department Care Team (Latest Contact Info) Description 10/11/2024 9:00 AM CDT Office Visit [facility] - Orthopedic Surgery [address] [place] [phone] David Garza MD [address] [place] [phone] 11/17/2024 7:15 AM CDT Hospital Encounter [facility] [address] [place] [phone] David Garza MD [address] [place] [phone] Surgery General 11/17/2024 7:15 AM CDT - 11/17/2024 9:47 AM CDT Surgery [facility] [address] [place] [phone] David Garza MD [address] [place] [id number] TOTAL KNEE ARTHROPLASTY- RIGHT Scheduled Procedures Name [...] 60-74 years 1-dose series) 2020 COVID-19 VACCINE ( season) 2024 DEPRESSION SCREENING 06/21/2024 02/09/2024 SCREENING [...] this topic Medical Devices Implanted Type Area Radio Television Technical Director Device Identifier Shelf Expiration Date Model / Serial / Lot Deep Dished With Jrny Lock Implanted:Qty: 1 on 05/22/2024 by David Garza MD at [facility] [employer] [id number] 02/08/2032 [id number] / / [id number] Porous Tibia Baseplate W/Jrny Lock Implanted:Qty: 1 on 05/22/2024 by David Garza MD at [facility] [employer] [id number] 03/25/2034 [id number] / / [id number] Legion Por Cr Vaughan Fem L Sz 4 Implanted:Qty: 1 on 05/22/2024 by David Garza MD at [facility] [employer] [id number] 01/23/2034 [id number] / / [id number] Procedures Procedure Name Priority Date/Time Associated Diagnosis Comments COMPREHENSIVE METABOLIC PANEL Pre-Op 05/02/2024 7:10 AM NURSING HOME ASSISTANT ADMINISTRATOR Preprocedural examination from Last 3 Months or Most Recently Relevant to Health Maintenance Results * (ABNORMAL) COMPREHENSIVE METABOLIC PANEL (05/02/2024 7:10 AM [facility]) [facility] Glucose 94 70 - 99 mg/dL 05/02/2024 8:01 AM [facility] Sodium 141 136 - 145 mmol/L 05/02/2024 8:01 AM [facility] Potassium 4.5 3.5 - 5.1 mmol/L 05/02/2024 8:01 AM [facility] Chloride 109(H) 98 - 107 mmol/L 05/02/2024 8:01 AM [facility] CO2 24 22 - 29 mmol/L 05/02/2024 8:01 AM [facility] Calcium 9.7 8.4 - 10.4 mg/dL 05/02/2024 8:01 AM [facility] Anion Gap 8 6 - 16 mmol/L 05/02/2024 8:01 AM [facility] BUN 15 7 - 26 mg/dL 05/02/2024 8:01 AM [facility] Creatinine 0.71 0.57 - 1.11 mg/dL 05/02/2024 8:01 AM [facility] Alkaline Phosphatase 105 40 - 150 U/L 05/02/2024 8:01 AM [facility] ALT 23 0 - 55 U/L 05/02/2024 8:01 AM [facility] AST 20 5 - 34 U/L 05/02/2024 8:01 AM [facility] Protein Total 7.1 6.4 - 8.3 gm/dL 05/02/2024 8:01 AM [facility] Albumin 4.0 3.4 - 5.0 gm/dL 05/02/2024 8:01 AM [facility] Bilirubin Total 0.5 0.2 - 1.2 mg/dL 05/02/2024 8:01 AM [facility] eGFR by CKD-EPI >90 >=90 mL/min/1.7 3 m2 05/02/2024 8:01 AM [facility] Blood BLOOD SPECIMEN / Unknown Venipuncture / Unknown 05/02/2024 7:10 AM NURSING HOME ASSISTANT ADMINISTRATOR 05/02/2024 7:40 AM [facility] David Garza MD LAB - CHEMISTRY ORD ERABLES [facility] [address] [place] [address] from Last 3 Months or Most Recently Relevant to Health Maintenance Advance Directives * Full Code (Latest Code Status on File) Date Activated Date Inactivated Comments 05/22/2024 4:34 PM 05/23/2024 3:48 PM Care Teams Park Worker Relationship Specialty Start Date End Date Britney Hernandez APRN-CORDWAINER [address] [place] [phone] PCP - General Nurse Practitioner Adult Health 02/09/24
--- OUTSIDE RECORDS SUMMARY | 2024-09-29 00:43 | XMS_ITS | Referral Summary ---
Author Organization [facility] Address [address] [place] [address] Phone Care Team Providers Care Knitted Garment Finisher Name Role Phone Minerva Baldwin MD Primary [...] on file Legal Sex Female 9:12 AM TRANSPORTATION PLANNING ENGINEER Gender Identity Female 06/09/2023 2:24 PM TRANSPORTATION PLANNING ENGINEER Sexual Orientation Straight 06/09/2023 2: 24 PM TRANSPORTATION PLANNING ENGINEER Last Filed Vital Signs Vital Sign Reading Time Taken Comments Blood Pressure 135/89 08/17/2017 10:05 AM TRANSPORTATION PLANNING ENGINEER Pulse 98 08/17/2017 10:05 AM TRANSPORTATION PLANNING ENGINEER Temperature - - Respiratory Rate - - Oxygen Saturation 99% 07/30/2017 1:28 PM TRANSPORTATION PLANNING ENGINEER Inhaled Oxygen Concentration - - Weight 86.2 kg (190 lb) 08/09/2023 8:59 AM TRANSPORTATION PLANNING ENGINEER Height 149.5 cm (4' 10.85 ) 08/09/2023 8:59 AM C Body Mass Index 38.57 08/09/2023 8:59 AM TRANSPORTATION PLANNING ENGINEER Plan of Treatment Not on file Insurance [facility] Member Subscriber Plan / Payer (Ef fective 2019-Present) Name:Gregor Ariza Relation to Subscriber:Self Name:Gregor Ariza Payer ID:[id number] ([facility]) Type:[facility] HMO/PPO Address: [facility] [id number] [place] [phone] [facility] H[facility]/PPO Address: [address] [address] Care Teams Knitted Garment Finisher Relationship Specialty Start Date End Date Minerva Baldwin MD [address] [place] [address] [address] PCP - General Family Practice 06/09/23
--- OUTSIDE RECORDS SUMMARY | 2024-09-29 00:43 | XMS_ITS | Patient Health Record ---
Author Organization [facility] Address [address] [place] [address] Care Team Providers Care Thermostatic Controls Supervisor Name Role Phone Britney Hernandez Primary [...] Active RESULTS Component Value Reference Range Notes Comp. Metabolic Panel (14) ( CMP)([id number]) Reviewed date:03/21/2024 12:29:44 PM Interpretation:Normal [facility]forming [facility], [address] [place] [id number], Phone - [phone], Director - [facility] Notes/Report: Glucose 83 70-99 mg/dL BUN 17 [...] (SGPT) 28 0-32 IU/L Hemoglobin A1c (S/O) ([id number] ) Reviewed date:03/21/2024 12:29:44 PM Interpretation:Normal Performing Lab:[address] [id number], Phone - [phone], Director - [facility] Notes/Report: Hemoglobin A1c 5.6 4.8-5.6 % . Prediabetes: 5.7 - 6.4 Diabetes: >6.4 Glycemic control for adults with diabetes: <7.0 CBC With Differential/Platel et (820473) Reviewed date:03/21/2024 12:29:45 PM Interpretation:Normal Performing Lab:[address] [id number], Phone - [phone], Director - [facility] Notes/Report: WBC 7.0 3.4-10.8 x10E3/uL RBC 4.56 [...] Comments: Lipid Panel w/ Chol/HDL Rati o ([id number]) Reviewed date:03/21/2024 12:29:45 PM Interpretation:Abnormal Performing Lab:[facility] [address] [id number], Phone - [phone], Director - [facility] Notes/Report: Cholesterol, Total 200 100-199 mg/dL Triglycerides 96 0-149 mg/dL HDL Cholesterol 73 >39 mg/dL VLDL Cholesterol Deandre 17 5-40 mg/dL LDL Chol Calc ([facility]) 110 0-99 mg/dL LDL Calc Comment: T. Chol/HDL Ratio 2.7 0.0-4.4 ratio T. Chol/HDL Ratio Men Women 1/2 Avg.Risk 3.4 3.3 Avg.Risk 5.0 4.4 2X Avg.Risk 9.6 7.1 3X Avg.Risk 23.4 11.0 TSH reflex to T4 Reviewed date:03/21/2024 12:29:45 PM Interpretation:Abnormal Performing Lab:[facility] [address] [id number], Phone - [phone], Director - [facility] Notes/Report: TSH 7.460 0.450-4.500 uIU/mL Thyroxine (T4) 7.8 4.5-12.0 ug/dL REASON FOR REFERRAL No Information MEDICATIONS Medication SIG (Take, Route, Frequency, Duration) [...] Problem Colon cancer screening (Z12.11) Active confirmed 239465774 Problem Personal history of colonic polyps (Z86.010) Active confirmed [id number] Problem BMI 39.0-39.9,adult (Z68.39) Active confirmed 799774090 Problem Obesity (BMI 35.0-39.9 without comorbidity) (E66.9) Active confirmed Obesity (860898523) Problem Smoker unmotivated to quit (F17.200) Active confirmed 40553378 Problem Arthritis of both knees (M17.0) Active confirmed [id number] VITAL SIGNS Heart Rate 58 /min 04/06/2024 152/71 initiall y per WINDOW COVERING SALES CONSULTANT. Temperature 97.6 degrees Fahrenheit 04/06/2024 152/ 71 initially per [employer] C[employer]ING SALES CONSULTANT. Respiratory Rate 12 /min 04/06/2024 152/71 init ially per [employer]OW COVERING SALES CONSULTANT. Oximetry 98 % 04/06/2024 152/71 initiall y per [employer] COVERING SALES CONSULTANT. Blood pressure diastolic 68 mm Hg 04/06/2024 152 /71 initially per [employer] COVERING SALES CONSULTANT. Weight-kg 93.08 kg 04/06/2024 152/71 initiall y per W[employer]OW COVERING SALES CONSULTANT. Height 59 in 04/06/2024 152/71 initiall y per [employer] COVERING SALES CONSULTANT. Blood pressure systolic 120 mm Hg 04/06/2024 152/ 71 initially per WINDOW COVERING SALES CONSULTANT. Weight 205.2 lbs 04/06/2024 152/71 initiall y per WINDOW COVERING SALES CONSULTANT. BMI 41.44 04/06/2024 152/71 initiall y per W[employer]OW COVERING SALES CONSULTANT. Encounters Encounter Location Date Provider Diagnosis [address] [place] [address] 03/20/2024 Britney Hernandez Encounter for genera l adult medical examination with abnormal findings Z00.01 ; Arthritis of both knees M17.0 ; Smoker within last 12 months Z87.891 ; Abnormal thyroid blood test R79.89 ; BMI 40.0-44.9, adult Z68.41 ; FHx: diabetes mellitus Z83.3 and Screening cholesterol level Z13.220 [facility] [address] [place] [address] 03/20/2024 Britney [facility] [address] [place] [address] 03/21/2024 Britney Hernandez Abnormal thyroid blo od test R79.89 ; Hyperlipidemia, unspecified hyperlipidemia type E78.5 and FHx: diabetes mellitus Z83.3 [facility] [address] [place] [address] 03/21/2024 Britney [facility] [address] [place] [address] 04/06/2024 Britney Hernandez Encounter for immunization Z23 and Generalized joint pain M25.50 [facility] [address] [place] [address] 06/08/2024 [facility] [address] [place] [address] 04/10/2024 Britney marina ASSESSMENTS Encounter Date Diagnosis Assessment Notes Treatment Notes Treatment Clinical Notes Section Notes 03/20/2024 Encounter for general adult medical examination with abnormal findings (ICD-10 - Z00.01) Last Labs: drawn today NONfasting. Pt may provide results to orthopedist if needed. Last Mammo: reportedly WNL completed 04/19/24 at [facility], now scheduled 04/2024. Last Pap: 03/[address] Ankit Gar or ENERGY ANALYST at [facility], repeat 1 year. Vaccines: reports she got [...] scheduled for LT TKR with orthopedist at [facility]. She reports they will not schedule her w/o PCP physical exam and form completed. Form completed and provided to pt. 03/21/2024 Hyperlipidemia, unspecified hyperlipidemia type (ICD-10 - E78.5) 02/2024 labs indicate very mild TC and LDL elevation. Encouraged weight loss, nutritional intake improvement, exercise as tolerated. ASCVD risk current 10 year is 3.4%, prior 10 year at 7.3%, and optimal at 1.3%. Repeat with annual labs. 03/21/2024 Abnormal thyroid blood test (ICD-10 - [...] labs in 6-12 months or sooner PRN. 04/06/2024 Encounter for immunization (ICD-10 - Z23) [...] and concerns were addressed to pt satisfaction. 03/20/2024 Smoker within last 12 months (ICD-10 [...] 03/20/2024 Screening cholesterol level (ICD-10 - Z13.220) 03/20/2024 Other Reports urinary dribbling with cough/sneeze/s ome activities. She declines pelvic floor PT referral stating she discovered employer benefit of [employer] for pelvic floor and has contacted them. She will call for need of further help. Reports urinary dribbling with cough/sneeze/s ome activities. She declines pelvic floor PT referral stating she discovered employer benefit of [employer] for pelvic floor and has contacted them. She will call for need of further help. PLAN OF TREATMENT Next Appt Details Provider Name:Britney Hernandez , 03/19/2025 08:30:00 AM, [address] [place], [address], Insurance Providers Payer Name Payer Address Payer Phone Subscriber Number Group Number Insured Name Patient Relationship to Insured Coverage Start Date Coverage End Date MARY CARRANZA PPO [employer] [address] [address] [place] [address] [id number] Gregor Ariza Self - patient is the insured MEDICAL (GENERAL) HISTORY Medical History History ICD Code Smoker F17.200 Kidney stones N20.0 Arthritis M19.90 Cold sore B00.1 Sinus problem J34.9 Obesity (BMI 35.0-39.9 without comorbidi ty) E66.9 Surgical History Surgery Date(Month/Year) colonoscopy with [facility] 04/22/2023 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
--- OUTSIDE RECORDS SUMMARY | 2024-09-29 00:43 | XMS_ITS ---
Author Organization [facility] Address [address] [place] [address] Care Team Providers Care Ccie Name Role Phone Britney Hernandez Primary Care Provider REASON FOR VISIT PRTL: Shingles shot notes Encounters Encounter Location Date Provider Diagnosis [address] [address] 04/10/2024 Briteny Hernandez PLAN OF TREATMENT Next Appt Details Provider Name:Britney Hernandez , 03/19/2025 08:30:00 AM, [address] [place], [address], Progress Notes * Gregor CASPERDOB: (63 yo F)Acc No.[id number]:04/10/2024 Patient: Gregor CASPER :1960 Age:63 Y Sex:Female Address:[address] [place] [address] [place] [address] Subjective: * Chief Complaints: * PRTL: Shingles shot notes * Medical History: * Surgical History: * Hospitalization/Major Diagno stic Procedure: * Medications: Objective: Assessment: Plan: * Treatment: * Procedure Codes: * true * Date:
--- OUTSIDE RECORDS SUMMARY | 2024-09-29 00:44 | XMS_ITS | Clinical Summary ---
Author Organization [facility] Address [address] [place] [address] Phone Care Team Providers Care Dust Operator Name Role Phone Minerva Baldwin MD Primary [...] on file Legal Sex Female 9:12 AM CANNING MACHINE OPERATOR Gender Identity Female 06/09/2023 2:24 PM CANNING MACHINE OPERATOR Sexual Orientation Straight 06/09/2023 2: 24 PM CANNING MACHINE OPERATOR Obstetrics History Last Filed Vital Signs Vital Sign Reading Time Taken Comments Blood Pressure 135/89 08/17/2017 10:05 AM CANNING MACHINE OPERATOR Pulse 98 08/17/2017 10:05 AM CANNING MACHINE OPERATOR Temperature - - Respiratory Rate - - Oxygen Saturation 99% 07/30/2017 1:28 PM CANNING MACHINE OPERATOR Inhaled Oxygen Concentration - - Weight 86.2 kg (190 lb) 08/09/2023 8:59 AM CANNING MACHINE OPERATOR Height 149.5 cm (4' 10.85 ) 08/09/2023 8:[address] Body Mass Index 38.57 08/09/2023 8:59 AM CANNING MACHINE OPERATOR Plan of Treatment Health Maintenance Due Date Last Done Comments Breast Cancer Screening-Mammogram 1960 Cervical Cancer Screening 1960 Colon Cancer Screening-Colonoscopy 1960 Depression Screening 1960 Hepatitis C Screening 1960 DTaP/Tdap/Td Vaccine (1 - Tdap) 09/03/1971 Hepatitis B Screening 1978 Regular Well Visit/Exam 18-64 1978 Pneumococcal vaccine <65 (1 of 2 - PCV) 09/03/1979 Zoster Vaccine (1 of 2) 2010 Influenza Vaccine (Season Ended) 2025 04/07/2023, 04/06/2019, 03/28/2018, Additional history exists Insurance [facility] Care Teams Dust Operator Relationship Specialty Start Date End Date Minerva Baldwin MD [address] [place] [address] [place] [address] PCP - General Family Practice 06/09/23
--- OUTSIDE RECORDS SUMMARY | 2024-09-29 00:44 | XMS_ITS | Clinical Summary ---
Author Organization [facility] Address [address] [place] [address] Phone Care Team Providers Care Toll Collector Supervisor Name Role Phone Unavailable Primary Care Provider [...] on file Legal Sex Female 11:47 AM BRUSH WORKER Gender Identity Not on file Sexual Orientation Not on file Plan of Treatment Health Maintenance Due Date Last Done Comments DTAP/TDAP/TD VACCINES (1 - Tdap) 09/03/1979 HPV/Cotest (21-29) 1981 PAP SMEAR 1981 CERVICAL CANCER SCREENING 1990 HPV/Cotest (30-65) 1990 PAP SMEAR 1990 BREAST CANCER SCREENING [...] patient's age to complete this topic Insurance [facility] [id number] [facility] Address: [facility] [id number] [place] [address]
--- NOTE | 2024-09-29 06:24 | WPDHPUPDATE1 ---
History and Physical Update Update Date/Time: 09/29/24 06:24 History and Physical has been reviewed, including an updated exam of the patient. There are NO changes in the patient's condition. Risks, benefits, and alternatives have been discussed and questions answered. Patient agrees to proceed with procedure.
--- NOTE | 2024-09-29 09:46 | P.PNAN_ITS ---
Anes - Initial Pre Proc Eval Procedure: Operation Date: 09/29/24 11:00 Proposed Procedures p Cystoscopy, Left Ureteroscopy, Possible Left Stone Extraction, Possible Left Stent Placement, Possible Holmium Laser - David Figueroa MD Date/Time: 09/29/24 09:46 Surgeon: David Figueroa MD Pre Op Diagnosis: left ureteral kidney stones Patient Data Age: 64 Gender: F Height: 1.52 m Weight: 90.9 kg Allergies Allergy/AdvReac Type Severity Reaction Status Date / Time erythromycin base Allergy Severe NAUSEA AND Verified 09/27/24 11:07 DIARRHEA morphine Allergy Severe ITCHING Verified 09/27/24 11:07 azithromycin Allergy Intermediate Nausea and Verified 09/27/24 11:07 Vomiting aspirin AdvReac Intermediate bloody nose Verified 09/27/24 11:07 salicylic acid AdvReac Intermediate Nose Bleed Verified 09/27/24 11:07 Home Medications ?Medication ?Instructions ?Recorded ?Confirmed ?Type multivitamin 1 tablet PO DAILY 05/25/19 09/27/24 History cholecalciferol (vitamin D3) 25 25 mcg PO DAILY 05/09/21 09/27/24 History mcg (1,000 unit) capsule potassium gluconate 550 mg (90 mg) 550 mg PO DAILY 05/09/21 09/27/24 History tablet vitamin E (dl, acetate) 180 mg 180 mg PO DAILY 05/09/21 09/27/24 History (400 unit) capsule Glucosamine Chondroitin 1,125 mg PO DAILY 04/13/23 09/27/24 History calcium 600 mg (as 1.5 tablet PO DAILY 04/13/23 09/27/24 History carbonate)-vitamin D3 10 mcg (400 unit) tablet (Calcium with Vitamin D) clobetasol 0.05 % topical ointment 1 applic topical QHS 12 weeks #45 09/11/24 09/27/24 Rx grams nystatin 100,000 unit/gram topical 1 applic topical BID #30 grams 09/11/24 09/27/24 Rx powder tamsulosin 0.4 mg capsule 0.4 mg PO QPM 09/27/24 09/27/24 History Patient hx anesthesia problems: other (slow to awaken) Family hx anesthesia problems: none Results Review: All pre-operative results and documents have been reviewed as part of the pre- operative evaluation. PMFSH Past Medical History Medical History Broken ribs Osteopenia Hx of colonic polyp (~02/2016) Hypothyroid Low TSH, normal T4. Monitoring. Hyperlipidemia Tobacco use History of vaginal delivery x1 Vitamin D deficiency Colovesical fistula Takedown 2018 Kidney stone 1986, 2002 Arthritis Surgical History Surgical History Hx of knee surgery (~1974) repair of chronic sublettal patella H/O partial resection of colon (~2017) 18 Sigmoid Colectomy H/O section x4 H/O sinus surgery (~1989) H/O dilation and curettage 1993, 1979 History of appendectomy (~1968) History of lumpectomy of left breast (~09/1997) History of partial hysterectomy (~04/2007) with Bladder repair Hx of tubal ligation (~1991) Family History Family History Mother Breast cancer Other Breast cancer Mother Family history of blood dyscrasia, Onset Age: 66 History of thyroid surgery Mitral valve replaced Father H/O coronary artery bypass surgery Social History Social History Smoking packs per day: 0.5 Smoking cigarettes per day: 10.0 Years smoked: 35 Smoking pack-years: 17.50 Smoking status: Former smoker Tobacco type: cigarettes Second hand tobacco smoke exposure: No Smoking end date: 02/08/24 Alcohol intake: current Alcohol use details: occasionnally Substance use: never Substance use type: does not use Do You Feel Safe in your Home?: Yes Lack of Transportation: No Lack of Food: Never True Current Housing: I Have Housing Concerned About Future Housing: No Difficulty Paying Gas/Electric Bills: No Difficulty Paying for Meds: No Currently Unemployed: No Education: Associate Degree Difficulty w/ Childcare or Family Care: No Living arrangements: with family Additional living arrangements comments: 2 Sons Occupation/Education: occupation 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 Informed Consent: The patient's anesthetic plan and its attendant risks and benefits were discussed with the patient/family/POA. Questions were solicited and answers provided to the satisfaction of the patient/family/POA.
--- NOTE | 2024-09-29 11:33 | P.HP_ITS ---
History of Present Illness History of Present Illness Consent: Risks, benefits, and alternatives have been discussed and questions answered. Patient agrees to proceed with procedure. Chief complaint: left ureteral kidney stones Narrative: Gregor Ariza is a 64 year old female with a history of recurrent urolithiasis. For the past several weeks she has had intermittent left flank pain. Imaging several weeks ago, repeated today, show a persistent 5 mm left distal ureteral calculus. Review of Systems Cardiovascular: Cardiovascular: Denies chest pain, Denies lightheadedness, Denies palpitations and Denies dyspnea Respiratory: Respiratory: Denies dyspnea Gastrointestinal: Gastrointestinal: Denies diarrhea, Denies nausea and Denies vomiting Genitourinary: Genitourinary: Denies hematuria and Denies dysuria Endocrine: Endocrine: Denies palpitations PMFSH Past Medical History Medical History Broken ribs Osteopenia Hx of colonic polyp (~02/2016) Hypothyroid Low TSH, normal T4. Monitoring. Hyperlipidemia Tobacco use History of vaginal delivery x1 Vitamin D deficiency Colovesical fistula Takedown 2018 Kidney stone 1986, 2002 Arthritis Surgical History Surgical History Hx of knee surgery (~1974) repair of chronic sublettal patella H/O partial resection of colon (~2017) 18 Sigmoid Colectomy H/O section x4 H/O sinus surgery (~1989) H/O dilation and curettage 1993, 1979 History of appendectomy (~1968) History of lumpectomy of left breast (~09/1997) History of partial hysterectomy (~04/2007) with Bladder repair Hx of tubal ligation (~1991) Family History Family History Mother Breast cancer Other Breast cancer Mother Family history of blood dyscrasia, Onset Age: 66 History of thyroid surgery Mitral valve replaced Father H/O coronary artery bypass surgery Social History Social History Smoking packs per day: 0.5 Smoking cigarettes per day: 10.0 Years smoked: 35 Smoking pack-years: 17.50 Smoking status: Former smoker Tobacco type: cigarettes Second hand tobacco smoke exposure: No Smoking end date: 02/08/24 Alcohol intake: current Alcohol use details: occasionnally Substance use: never Substance use type: does not use Do You Feel Safe in your Home?: Yes Lack of Transportation: No Lack of Food: Never True Current Housing: I Have Housing Concerned About Future Housing: No Difficulty Paying Gas/Electric Bills: No Difficulty Paying for Meds: No Currently Unemployed: No Education: Associate Degree Difficulty w/ Childcare or Family Care: No Living arrangements: with family Additional living arrangements comments: 2 Sons Occupation/Education: occupation Additional occupation/education comments: project accountant Spiritual care concerns: No Agree to blood products: Yes Meds Home Medications and Allergies Home Medications ?Medication ?Instructions ?Recorded ?Confirmed ?Type multivitamin 1 tablet PO DAILY 05/25/19 09/27/24 History cholecalciferol (vitamin D3) 25 25 mcg PO DAILY 05/09/21 09/27/24 History mcg (1,000 unit) capsule potassium gluconate 550 mg (90 mg) 550 mg PO DAILY 05/09/21 09/27/24 History tablet vitamin E (dl, acetate) 180 mg 180 mg PO DAILY 05/09/21 09/27/24 History (400 unit) capsule Glucosamine Chondroitin 1,125 mg PO DAILY 04/13/23 09/27/24 History calcium 600 mg (as 1.5 tablet PO DAILY 04/13/23 09/27/24 History carbonate)-vitamin D3 10 mcg (400 unit) tablet (Calcium with Vitamin D) clobetasol 0.05 % topical ointment 1 applic topical QHS 12 weeks #45 09/11/24 09/27/24 Rx grams nystatin 100,000 unit/gram topical 1 applic topical BID #30 grams 09/11/24 09/27/24 Rx powder tamsulosin 0.4 mg capsule 0.4 mg PO QPM 09/27/24 09/27/24 History Allergies Allergy/AdvReac Type Severity Reaction Status Date / Time erythromycin base Allergy Severe NAUSEA AND Verified 09/29/24 10:01 DIARRHEA morphine Allergy Severe ITCHING Verified 09/29/24 10:01 azithromycin Allergy Intermediate Nausea and Verified 09/29/24 10:01 Vomiting aspirin AdvReac Intermediate bloody nose Verified 09/29/24 10:01 salicylic acid AdvReac Intermediate Nose Bleed Verified 09/29/24 10:01 Vital Signs Vital Signs - 24 hr 09/29/24 08:58 Temperature 97.1 F L Pulse Rate 59 L Respiratory Rate 16 Blood Pressure 107/47 L Pulse Oximetry 97 Oxygen Delivery Room Air Exam Const: General: no acute distress Resp: Effort & Inspection: normal respiratory effort GI: Inspection: non-distended GI Palp: No abdominal tenderness and No Guarding due to palpation present (GI) Auscultation: normal bowel sounds Assessment and Plan Assessment and plan (1) Left ureteral stone: Code(s): N20.1 - Calculus of ureter Status: Acute Assessment and Plan: * Cystoscopy, left ureteroscopy with stone extraction, possible laser lithotripsy, retrograde pyelogram and stent placement
[2024-09-29] MEDS: ceFAZolin 2 GM/D5W 50 ML 2 GM/50 ML BAG IVPB (11:39)
[2024-09-29] MEDS: KETOROLAC 15 MG/ML VIAL (*BKC) IV PUSH (12:03)
--- NOTE | 2024-09-29 12:07 | W.PM.PROC2 ---
Procedure Note - Detailed Date of Procedure 09/29/24 Pre-op Diagnosis Left ureteral kidney stones Post-op Diagnosis Same Procedure Performed Cystoscopy, left ureteroscopy with laser lithotripsy, stone extraction, retrograde pyelogram and stent placement Surgeon David Figueroa MD Anesthesia General Description of Procedure Patient is brought to the operative suite she is prepped and draped in routine sterile fashion while in dorsal lithotomy position after the uneventful induction of a general LMA anesthetic. Cystoscopy was undertaken with a 19 F rigid cystoscope. Bladder neck and urethra endoscopically normal. Bladder mucosa is normal and there is no intravesical foreign body or neoplasm. A 0.035 in glidewire was advanced into her left ureteral orifice and the distal ureter is dilated with an 8 F/10 F dilator. Ureteroscopy was undertaken with a short tapered semi-rigid ureteral scope. Her 5 mm stone is identified but I cannot extracted intact with a 1.9 F disposable stone basket. Using a 200 micron Brijesh laser fiber I broke the stone into 4 smaller pieces, all of which were removed with ease with the basket. Retrograde pyelography showed no contrast extravasation but ureteral narrowing secondary to edema. In light of that I opted to place a 4.8 F variable length ureteral stent with the proximal coil in the renal pelvis and distal coil in the bladder. Scopes wires removed and she was taken to the recovery room in good condition. Drains Yes Packing No Pathology Yes Complications No immediate complications Condition Stable
[2024-09-29] MEDS: LACTATED RINGERS 1,000 ML 30 ML IV CONT (12:12)
== END 2024-09-29 13:57 | disposition home or self-care (01) ==
PROVIDERS: Visit Provider Urology
PROC: (CPT 52352; principal; 2024-09-29 11:00)
DX: N20.1 Calculus of ureter (principal); E78.5 Hyperlipidemia, unspecified; E55.9 Vitamin D deficiency, unspecified; E03.9 Hypothyroidism, unspecified; M85.88 Other specified disorders of bone density and structure, other site; M19.90 Unspecified osteoarthritis, unspecified site; E66.9 Obesity, unspecified; Z68.41 Body mass index [BMI] 40.0-44.9, adult; Z98.890 Other specified postprocedural states; Z90.49 Acquired absence of other specified parts of digestive tract; Z98.51 Tubal ligation status; Z87.891 Personal history of nicotine dependence; Z86.0100 Personal history of colon polyps, unspecified; Z80.3 Family history of malignant neoplasm of breast; Z82.49 Family history of ischemic heart disease and other diseases of the circulatory system
CPT/HCPCS: 52356; 74176; 74420; 82365; 88300; 99199; C1769; C2617; J0690; J1100; J1885; J2003; J2250; J2405; J2704; J3010; J7120

== ENCOUNTER 2025-04-25 13:41 | Outpatient (CLI) | payer OTHER, SELFPAY ==
--- NOTE | ~2025-04-25 | XR_ITS ---
XR abdomen/kub 1V 04/25/2025 14:30 INDICATION: Left ureteral stone TECHNIQUE: KUB COMPARISON: 09/11/2024 FINDINGS: Bowel gas pattern is normal. There is no evidence of free air, mass, organomegaly, ascites or obstruction. No abnormal calculi are seen. There are pelvic phleboliths. The bones appear intact. IMPRESSION: 1: No acute abdominal abnormality identified. Reviewed, dictated and finalized at location O. OPERATOR
== END 2025-04-25 13:42 | disposition home or self-care (01) ==
PROVIDERS: Visit Provider Urology
DX: N20.1 Calculus of ureter (principal)
CPT/HCPCS: 74018

== ENCOUNTER 2025-05-22 08:42 | Outpatient (CLI) | payer OTHER, SELFPAY ==
--- NOTE | ~2025-05-22 | MM_ITS ---
EXAMINATION: MM screening arden BI w bety HISTORY: Screening. TECHNIQUE: Craniocaudal and mediolateral oblique 3-D tomosynthesis images were obtained and synthetic 2-D images were generated. CAD analysis was submitted and interpreted. COMPARISON: 2023 and 2022 BREAST PARENCHYMAL COMPOSITION: Not Dense: The breasts are almost entirely fatty FINDINGS: No suspicious masses are seen. There are no suspicious calcifications. No unexplained architectural distortion is seen. There are no skin or nipple abnormalities identified. There is no adenopathy seen on the images submitted. IMPRESSION: No mammographic evidence to suggest malignancy is seen. The patient may return to screening mammography as per ACR guidelines. BI-RADS 1 - Negative. Reviewed, dictated and finalized at location B. ACT CENTER ANALYST
--- OUTSIDE RECORDS SUMMARY | 2025-05-22 08:59 | XMS_ITS | Clinical Summary ---
Author Organization [facility] Address [address] [place] [phone] Phone Care Team Providers Care Nitrocellulose Maker Name Role Phone Unavailable Primary Care Provider [...] on file Legal Sex Female 11:47 AM MANAGER R D Gender Identity Not on file Sexual Orientation Not on file Plan of Treatment Health Maintenance Due Date Last Done Comments DTAP/TDAP/TD VACCINES (1 - Tdap) 09/03/1979 HPV/Cotest (21-29) 1981 CERVICAL CANCER SCREENING 1990 HPV/Cotest (30-65) 1990 PAP SMEAR 1990 BREAST CANCER SCREENING 2000 COLORECTAL SCREENING 2005 Colorectal Cancer Screening 2005 FIT-DNA Q 3 years 2005 FIT/FOBT Q 1 year 2005 Flex Sig/CT Colonography Q 5 years 2005 ZOSTER VACCINE (1 of 2) 2010 INFLUENZA VACCINE (#1) 2025 9, 03/28/2018, 03/29/2017 RSV VACCINE (60+ or ) (1 - 1-dose 75+ series) 09/03/2035 Insurance [employer] PPO [id number]
--- OUTSIDE RECORDS SUMMARY | 2025-05-22 08:59 | XMS_ITS | Clinical Summary ---
Author Organization [facility] Address [address] [place] [address] Phone Care Team Providers Care Thickener Operator Name Role Phone Minerva Baldwin MD [...] on file Legal Sex Female 9:12 AM MAINTENANCE PERSON Gender Identity Female 06/09/2023 2:24 PM MAINTENANCE PERSON Sexual Orientation Straight 06/09/2023 2: 24 PM MAINTENANCE PERSON Last Filed Vital Signs Vital Sign Reading Time Taken Comments Blood Pressure 135/89 08/17/2017 10:05 AM MAINTENANCE PERSON Pulse 98 08/17/2017 10:05 AM MAINTENANCE PERSON Temperature - - Respiratory Rate - - Oxygen Saturation 99% 07/30/2017 1:28 PM MAINTENANCE PERSON Inhaled Oxygen Concentration - - Weight 86.2 kg (190 lb) 08/09/2023 8:59 AM MAINTENANCE PERSON Height 149.5 cm (4' 10.85) 08/09/2023 8:[address] Body Mass Index 38.57 08/09/2023 8:59 AM MAINTENANCE PERSON Plan of Treatment Health Maintenance Due Date Last Done Comments Breast Cancer Screening-Mammogram 1960 Cervical Cancer Screening 1960 Colon Cancer Screening-Colonoscopy 1960 Depression Screening 1960 Hepatitis C Screening 1960 DTaP/Tdap/Td Vaccine (1 - Tdap) 09/03/1971 Hepatitis B Screening 1978 Regular Well Visit/Exam 18-64 1978 Pneumococcal vaccine <65 (1 of 2 - PCV) 09/03/1979 Zoster Vaccine (1 of 2) 2010 Influenza Vaccine (#1) 2025 3, 04/06/2019, 03/28/2018, Additional history exists Insurance [facility] H[facility]/PPO Address: [address] [address] [place] [address] [facility]PPO Address: [address] [address] [place] [address] Care Teams Thickener Operator Relationship Specialty Start Date End Date Minerva Baldwin MD [address] [place] [address] [address] PCP - General Family Practice 06/09/23
== END 2025-05-22 08:43 | disposition home or self-care (01) ==
LOC: ANHFOHIMG 08:46
PROVIDERS: Visit Provider Nurse Practitioner Family
DX: Z12.31 Encounter for screening mammogram for malignant neoplasm of breast (principal)
CPT/HCPCS: 77063; 77067